=== PATIENT | male | born 1945 | race Two or more races ===

== ENCOUNTER 2019-10-16 01:56 | Inpatient (IN) | payer OTHER ==
[~2019-10-16] VITALS: Ht 162.6 cm; Wt 68.9 kg
[2019-10-16] MEDS ORDERED: SODIUM CHLORIDE 0.9% 1,000 ML IV ONE (02:52)
[2019-10-16] MEDS ORDERED: DOXYCYCLINE 100MG/250ML 250 ML IV ONE (03:00)
[2019-10-16] MEDS ORDERED: methylPREDNISolone SOD SUCC 125 MG/2 ML VL IV ONE (03:00)
[2019-10-16 03:31] LABS: Basophils # (auto) 0 10 ^3/uL (0-0.2); Basophils % (auto) 0.2 % (0.0-2.0); Eosinophils # (auto) 0 10 ^3/uL (0-0.8); Hematocrit 45.7 % (41.0-53.0); Hemoglobin 15.5 g/dL (13.5-17.5); Lymphocytes % (auto) 7.7 % (10.0-50.0); Mean Corpuscular Hemoglobin 31.8 pg (28.0-32.0); Mean Corpuscular Hgb Conc. 33.9 g/dL (32.0-36.0); Mean Corpuscular Volume 93.7 fL (80.0-100.0); Monocytes # (auto) 0.4 10 ^3/uL (0-1.3); Monocytes % (auto) 2.8 % (0.0-12.0); Neutrophils # (auto) 11.6 10 ^3/uL (1.6-8.6); Neutrophils % (auto) 89.3 % (37.0-80.0); Nucleated Red Blood Cells % 0.1 %; Platelet Count (auto) 153 10^3/uL (140-450); Red Blood Cells 4.87 10^6/uL (4.5-5.90); Red Cell Distribution Width 13.4 % (11.8-14.3)
[2019-10-16 03:35] LABS: Albumin 2.3 g/dL (3.4-5.0); Calcium 7.9 mg/dL (8.5-10.1); INR 1.07 (0.9-1.15); Magnesium 2.8 mg/dL (1.6-2.6); Partial Thromboplastin Time 30.2 sec (23.64-32.05); Potassium 3.8 mmol/L (3.5-5.1)
[2019-10-16 03:37] LABS: Lactic Acid w/Reflex 2.3 mmol/L (0.4-2.0)
[2019-10-16 03:39] LABS: Bilirubin, Total 0.8 mg/dL (0.2-1.0); Total Protein 7.5 g/dL (6.4-8.2)
[2019-10-16 11:53] LABS: Urine Bacteria NONE SEEN /hpf (None Seen); Urine Blood Negative /uL (Negative); Urine Mucus FEW (None Seen); Urine Specific Gravity 1.018 (1.001-1.035); Urine WBC 2 /hpf (0 - 3)
[2019-10-16] MEDS ORDERED: NITROGLYCERIN 0.4 MG SL TAB SL PRN (13:00)
[2019-10-16] MEDS ORDERED: levoFLOXacin 500MG 100 ML IV ONE (13:00)
[2019-10-16] MEDS ORDERED: ACETAMINOPHEN 500 MG TAB PO PRN (13:00)
[2019-10-16] MEDS ORDERED: MORPHINE SULF INJ 2 MG/ML SYRINGE 1ML IV PRN ×2 (13:00)
[2019-10-16] MEDS ORDERED: TEMAZEPAM 15 MG CAP PO PRN (13:00)
[2019-10-16] MEDS ORDERED: traMADol HCL 50 MG TAB PO PRN (13:00)
[2019-10-16] MEDS ORDERED: PROMETHAZINE HCL 25 MG/ML 1ML IV PRN (13:00)
[2019-10-16] MEDS ORDERED: DEXTROSE (50%) 50ML SYRG IV PRN (13:00)
[2019-10-16] MEDS: BUDESONIDE (INHALATION) 180 MCG IH IN SCH ×2 (13:08→22:20)
[2019-10-16] MEDS ORDERED: ZINC SULFATE 220mg CAP or TAB PO ONE (13:15)
[2019-10-16] MEDS ORDERED: DexAMETHasone SOD PHOS 10MG/1ML VIAL INJ IV ONE (13:15)
[2019-10-16] MEDS ORDERED: CHOLECALCIFEROL (VITD3) 2,000 UNIT CAP PO ONE (13:15)
[2019-10-16] MEDS: SODIUM CHLORIDE 0.9% 1,000 ML IV SCH (13:49)
[2019-10-16] MEDS: ASCORBIC ACID 1,000 MG TAB PO SCH (13:50)
[2019-10-16] MEDS: CLINDAMYCIN 600MG IV 50 ML IV SCH ×2 (13:52→22:00)
[2019-10-16] MEDS: ALBUTEROL SULF HFA 90MCG INH 200DOSE IN SCH ×2 (14:00→22:20)
[2019-10-16 14:38] VITALS: BP 106/56
[2019-10-16] MEDS: InsuLIN REG 1unit/0.01ml Soln (100units/ml) SC SCH ×2 (17:00→22:25)
[2019-10-16] MEDS: ACCU-CHEK COMFORT CURVE STRIP VI SCH ×2 (17:00→22:20)
[2019-10-16] MEDS: FAMOTIDINE 20 MG TAB PO SCH (22:00)
[2019-10-17] MEDS: SODIUM CHLORIDE 0.9% 1,000 ML IV SCH (02:15)
[2019-10-17 04:16] LABS: Basophils # (auto) 0.1 10 ^3/uL (0-0.2); Basophils % (auto) 0.5 % (0.0-2.0); Eosinophils # (auto) 0 10 ^3/uL (0-0.8); Eosinophils % (auto) 0.1 % (0.0-7.0); Hematocrit 46.8 % (41.0-53.0); Hemoglobin 15.8 g/dL (13.5-17.5); Lymphocytes # (auto) 0.7 10 ^3/uL (0.4-5.4); Lymphocytes % (auto) 5.4 % (10.0-50.0); Mean Corpuscular Hemoglobin 31.8 pg (28.0-32.0); Mean Corpuscular Hgb Conc. 33.8 g/dL (32.0-36.0); Monocytes # (auto) 0.4 10 ^3/uL (0-1.3); Monocytes % (auto) 3.5 % (0.0-12.0); Neutrophils # (auto) 11.5 10 ^3/uL (1.6-8.6); Neutrophils % (auto) 90.5 % (37.0-80.0); Nucleated Red Blood Cells % 0.1 %; Platelet Count (auto) 152 10^3/uL (140-450); Red Blood Cells 4.98 10^6/uL (4.5-5.90); Red Cell Distribution Width 13.3 % (11.8-14.3); White Blood Cell 12.6 10^3/uL (4.4-10.8)
[2019-10-17 04:35] LABS: Albumin 1.9 g/dL (3.4-5.0); Calcium 7.8 mg/dL (8.5-10.1)
[2019-10-17 04:38] LABS: BUN/Creatinine Ratio 27.9; Bilirubin, Total 0.5 mg/dL (0.2-1.0); Total Protein 6.7 g/dL (6.4-8.2)
--- NOTE | 2019-10-17 06:25 | NUR ---
RT NOTE: PT HAS HIGH FLOW NASAL CANNULA ORDERS BUT IS CURRENTLY IN A ROOM THAT IS NOT EQUIPPED FOR THAT. PT IS CURRENTLY ON 15L NRB AND 10L OXYMIZER. PT STATES THAT HE DOES NOT HAVE ANY SOB AT THIS TIME. WILL CONTINUE TO MONITOR.
[2019-10-17] MEDS: CLINDAMYCIN 600MG IV 50 ML IV SCH (06:42)
[2019-10-17] MEDS: ALBUTEROL SULF HFA 90MCG INH 200DOSE IN SCH ×3 (07:18→21:46)
[2019-10-17] MEDS: ACCU-CHEK COMFORT CURVE STRIP VI SCH ×4 (08:26→22:06)
[2019-10-17] MEDS: InsuLIN REG 1unit/0.01ml Soln (100units/ml) SC SCH ×4 (08:28→22:09)
[2019-10-17] MEDS: DexAMETHasone SOD PHOS 10MG/1ML VIAL INJ IV SCH (09:39)
[2019-10-17] MEDS: FAMOTIDINE 20 MG TAB PO SCH ×2 (09:41→22:09)
[2019-10-17] MEDS: ZINC SULFATE 220mg CAP or TAB PO SCH (09:41)
[2019-10-17] MEDS: CHOLECALCIFEROL (VITD3) 2,000 UNIT CAP PO SCH (09:41)
[2019-10-17] MEDS: ASCORBIC ACID 1,000 MG TAB PO SCH (09:41)
[2019-10-17] MEDS ORDERED: levoFLOXacin 500MG 100 ML IV SCH (10:00)
[2019-10-17] MEDS ORDERED: AZITHROMYCIN 500MG/ 250ML 250 ML IV ONE (11:30)
[2019-10-17] MEDS: BUDESONIDE (INHALATION) 180 MCG IH IN SCH ×2 (12:22→21:45)
[2019-10-17] MEDS: ENOXAPARIN SOD 80 MG/0.8ML SYRINGE SC SCH ×2 (13:37→22:07)
[2019-10-18] MEDS: VANCOMYCIN 1GM/250ML 250 ML IV SCH ×2 (02:24→13:50)
[2019-10-18] MEDS: ALBUTEROL SULF HFA 90MCG INH 200DOSE IN SCH ×3 (06:15→23:24)
--- NOTE | 2019-10-18 06:15 | NUR ---
RT NOTE: PT REFUSED TX AT THIS TIME. PT APPEARS TO BE MORE ALTERED THAN YESTERDAY. ATTEMPTING TO GET PT TO ALLOW ABG. RN BEDSIDE. WILL CONTINUE TO MONITOR.
[2019-10-18] MEDS: InsuLIN REG 1unit/0.01ml Soln (100units/ml) SC SCH ×4 (07:00→21:59)
[2019-10-18] MEDS: ACCU-CHEK COMFORT CURVE STRIP VI SCH ×4 (07:08→22:00)
[2019-10-18] MEDS: DexAMETHasone SOD PHOS 10MG/1ML VIAL INJ IV SCH (07:54)
[2019-10-18] MEDS: ZINC SULFATE 220mg CAP or TAB PO SCH (07:54)
[2019-10-18] MEDS: ASCORBIC ACID 1,000 MG TAB PO SCH (07:54)
[2019-10-18] MEDS: CHOLECALCIFEROL (VITD3) 2,000 UNIT CAP PO SCH (07:54)
[2019-10-18] MEDS: AZITHROMYCIN 500MG/ 250ML 250 ML IV SCH (07:54)
[2019-10-18] MEDS: FAMOTIDINE 20 MG TAB PO SCH ×2 (07:54→22:04)
[2019-10-18] MEDS: ENOXAPARIN SOD 80 MG/0.8ML SYRINGE SC SCH ×2 (07:55→22:04)
[2019-10-18] MEDS: ACETAMINOPHEN 500 MG TAB PO PRN (09:50)
[2019-10-18 10:02] LABS: Hemoglobin 14.8 g/dL (13.5-17.5); Mean Corpuscular Hemoglobin 31.6 pg (28.0-32.0); Mean Corpuscular Hgb Conc. 33.6 g/dL (32.0-36.0); Platelet Count (auto) 228 10^3/uL (140-450); Red Blood Cells 4.68 10^6/uL (4.5-5.90); Red Cell Distribution Width 13.5 % (11.8-14.3); White Blood Cell 10.9 10^3/uL (4.4-10.8)
[2019-10-18 10:12] LABS: Basophils % (manual) 0 (0.0-2.0); Blast Cells 0; Eosinophils % (manual) 0 (0-7); Metamyelocytes % 0; Promyelocytes % 0; Reactive Lymphocytes 0
[2019-10-18 10:14] LABS: BUN/Creatinine Ratio 19.7; Calcium 8.2 mg/dL (8.5-10.1); Magnesium 2.6 mg/dL (1.6-2.6); Potassium 4.2 mmol/L (3.5-5.1)
[2019-10-18] MEDS: BUDESONIDE (INHALATION) 180 MCG IH IN SCH ×2 (10:31→23:24)
--- NOTE | 2019-10-18 10:31 | NUR ---
RT NOTE: PT REFUSED TX AGAIN. OXYGEN TITRATED DOWN TO 12L OXYMIZER ONLY. RN AWARE. NO SIGNS OF DISTRESS. SPO2 94-96%. WILL CONTINUE TO MONITOR.
[2019-10-18 10:44] LABS: Band Neutrophils % (manual) 5; Lymphocytes % (manual) 1 (10.0-50.0); Monocytes % (manual) 7 (0-12); Myelocytes % 1
--- NOTE | 2019-10-18 14:20 | NUR ---
RT NOTE: LEAVING ER BED 4, I SAW THE RN RUSHING TO PUT ON PPE. SHE STATED THAT PT HAD TAKEN OFF OXYMIZER OFF TO USE BEDSIDE COMMODE. WHEN SEEING PT, SPO2 WAS 44. PT WAS LAYING BACK IN BED AND LETHARGIC, BUT STILL TALKING. OXYMIZER PLACED BACK ON AND NRB ALSO PUT ON AT 15L. AFTER ABOUT 3MIN, SPO2 RETURNED TO 93-95%. PT SITTING IN BED, NO SIGNS OF RESPIRATORY DISTRESS. LEFT WITH BOTH OXYMIZER AND NRB. WILL RETURN TO TITRATE AGAIN.
--- NOTE | 2019-10-18 23:25 | NUR ---
RT NOTE PT WAS SEEN BY RT FOR MDI TX. PT TOLERATES WELL VIA SPACER. PT RINSED MOUTH WITH WATER POST TX Addendum: 10/18/19 at 2326 by Fadia Laura RT Amended: Links added.
[2019-10-19] MEDS: VANCOMYCIN 1GM/250ML 250 ML IV SCH ×2 (02:00→14:00)
[2019-10-19] MEDS ORDERED: LORazepam 2MG/ML-1ML VIAL ONE (03:10)
[2019-10-19] MEDS ORDERED: LORazepam 2MG/ML-1ML VIAL IV PRN (03:15)
[2019-10-19] MEDS: InsuLIN REG 1unit/0.01ml Soln (100units/ml) SC SCH ×4 (06:52→21:45)
[2019-10-19] MEDS: ACCU-CHEK COMFORT CURVE STRIP VI SCH ×4 (06:52→21:46)
[2019-10-19] MEDS: ALBUTEROL SULF HFA 90MCG INH 200DOSE IN SCH ×3 (07:15→23:14)
[2019-10-19] MEDS: BUDESONIDE (INHALATION) 180 MCG IH IN SCH ×2 (07:15→23:14)
[2019-10-19] MEDS ORDERED: ACETAMINOPHEN 650 MG RECT SUPP PR ONE ×2 (07:15→07:45)
[2019-10-19] MEDS: ZINC SULFATE 220mg CAP or TAB PO SCH (09:12)
[2019-10-19] MEDS: AZITHROMYCIN 500MG/ 250ML 250 ML IV SCH (09:12)
[2019-10-19] MEDS: DexAMETHasone SOD PHOS 10MG/1ML VIAL INJ IV SCH (09:12)
[2019-10-19] MEDS: FAMOTIDINE 20 MG TAB PO SCH ×2 (09:13→21:45)
[2019-10-19] MEDS: ASCORBIC ACID 1,000 MG TAB PO SCH (09:13)
[2019-10-19] MEDS: CHOLECALCIFEROL (VITD3) 2,000 UNIT CAP PO SCH (09:13)
[2019-10-19] MEDS: ENOXAPARIN SOD 80 MG/0.8ML SYRINGE SC SCH ×2 (09:15→21:45)
[2019-10-19 09:31] LABS: Hematocrit 45.2 % (41.0-53.0); Hemoglobin 15.1 g/dL (13.5-17.5); Mean Corpuscular Hemoglobin 31.7 pg (28.0-32.0); Mean Corpuscular Hgb Conc. 33.3 g/dL (32.0-36.0); Mean Corpuscular Volume 95.2 fL (80.0-100.0); Platelet Count (auto) 293 10^3/uL (140-450); Red Blood Cells 4.74 10^6/uL (4.5-5.90); Red Cell Distribution Width 13.7 % (11.8-14.3); White Blood Cell 11.2 10^3/uL (4.4-10.8)
[2019-10-19 09:46] LABS: Basophils % (manual) 0 (0.0-2.0); Blast Cells 0; Eosinophils % (manual) 0 (0-7); Monocytes % (manual) 0 (0-12); Promyelocytes % 0; Reactive Lymphocytes 0
[2019-10-19 09:53] LABS: Calcium 8.3 mg/dL (8.5-10.1); Magnesium 2.6 mg/dL (1.6-2.6); Potassium 3.9 mmol/L (3.5-5.1)
[2019-10-19 09:55] LABS: BUN/Creatinine Ratio 16.7
[2019-10-19 10:00] LABS: Lactic Acid w/Reflex 2.1 mmol/L (0.4-2.0)
[2019-10-19 10:33] LABS: Band Neutrophils % (manual) 2; Lymphocytes % (manual) 8 (10.0-50.0); Metamyelocytes % 1; Myelocytes % 1
[2019-10-19] MEDS ORDERED: TOCILIZUMAB 400 MG in SODIUM CHL 0.9% 80 ML IV ONE (11:15)
[2019-10-19] MEDS ORDERED: ACETAMINOPHEN 650 mg PER 20 mL UD PO ONE (11:15)
[2019-10-19] MEDS ORDERED: diphenhdrAMINE HCL 50 MG/1 ML VL IV ONE (11:15)
[2019-10-19] MEDS ORDERED: methylPREDNISolone SOD SUCC 40 MG/ML VL IV ONE (11:15)
[2019-10-19] MEDS: diphenhdrAMINE HCL 50 MG/1 ML VL IV SCH (11:50)
[2019-10-19] MEDS: methylPREDNISolone SOD SUCC 40 MG/ML VL IV SCH (11:50)
[2019-10-19] MEDS: ACETAMINOPHEN 650 mg PER 20 mL UD PO SCH (11:50)
--- NOTE | 2019-10-19 12:10 | NUR ---
Respiratory note: PT PLACE ON 15L NON-REBREATHER DUE TO SPO2 IN LOW 80'S. PT TOLERATED CHANGE WELL. CHARTING COMPLETE FROM OUTSIDE OF ROOM DUE TO COVID-19 PRECAUTIONS/PROTOCOL. RN AT BEDSIDE. WILL CONTINUE TO MONITOR PT.
[2019-10-19] MEDS: TOCILIZUMAB 400 MG in SODIUM CHL 0.9% 80 ML IV SCH (12:21)
--- NOTE | 2019-10-19 14:00 | NUR ---
Respiratory note: RN PRONED PT. PT TOLERATING PRONING WELL. SPO2 INCREASED TO 93%. WILL CONTINUE TO MONITOR PT.
--- NOTE | 2019-10-19 15:08 | NUR ---
Nutrition Assessment Notes Please refer to link for full assessment notes. Est Energy needs: 2160-6121 kcals (25-30 kcal/kgBW) Est Protein needs: 93-116 gms/day (1.2-1.5 gm/kgBW) d/t pt with respiratory distress Will continue to monitor and reassess prn. Addendum: 10/19/19 at [address] Amended: Links added.
[2019-10-19] MEDS ORDERED: REMDESIVIR 200 MG in NS 210ml LOADING DOSE ADULT IV ONE (16:00)
[2019-10-19 17:53] VITALS: BP 121/67
[2019-10-19] MEDS: THIAMINE 100mg/ml INJ (200mg/2ml VIAL) IV SCH (21:45)
[2019-10-20] MEDS: diphenhdrAMINE HCL 50 MG/1 ML VL IV SCH (00:05)
[2019-10-20] MEDS: ASCORBIC ACID 500 MG TAB PO SCH ×5 (00:06→23:47)
[2019-10-20] MEDS: methylPREDNISolone SOD SUCC 40 MG/ML VL IV SCH (00:06)
[2019-10-20] MEDS: ACETAMINOPHEN 650 mg PER 20 mL UD PO SCH (00:06)
[2019-10-20] MEDS: TOCILIZUMAB 400 MG in SODIUM CHL 0.9% 80 ML IV SCH (00:06)
[2019-10-20] MEDS: VANCOMYCIN 1GM/250ML 250 ML IV SCH ×2 (02:13→14:14)
[2019-10-20 06:00] LABS: Basophils # (auto) 0 10 ^3/uL (0-0.2); Basophils % (auto) 0.4 % (0.0-2.0); Eosinophils # (auto) 0 10 ^3/uL (0-0.8); Eosinophils % (auto) 0.1 % (0.0-7.0); Hematocrit 44.5 % (41.0-53.0); Hemoglobin 15.1 g/dL (13.5-17.5); Lymphocytes # (auto) 0.7 10 ^3/uL (0.4-5.4); Lymphocytes % (auto) 6.2 % (10.0-50.0); Mean Corpuscular Hemoglobin 32.3 pg (28.0-32.0); Mean Corpuscular Hgb Conc. 33.8 g/dL (32.0-36.0); Mean Corpuscular Volume 95.5 fL (80.0-100.0); Monocytes # (auto) 0.2 10 ^3/uL (0-1.3); Monocytes % (auto) 1.3 % (0.0-12.0); Neutrophils # (auto) 10.6 10 ^3/uL (1.6-8.6); Nucleated Red Blood Cells % 0.1 %; Platelet Count (auto) 312 10^3/uL (140-450); Red Blood Cells 4.66 10^6/uL (4.5-5.90); Red Cell Distribution Width 13.4 % (11.8-14.3); White Blood Cell 11.5 10^3/uL (4.4-10.8)
[2019-10-20 06:18] LABS: Albumin 1.9 g/dL (3.4-5.0); Calcium 7.9 mg/dL (8.5-10.1); Potassium 3.4 mmol/L (3.5-5.1)
[2019-10-20 06:22] LABS: BUN/Creatinine Ratio 22.1; Bilirubin, Total 0.7 mg/dL (0.2-1.0); Total Protein 6.8 g/dL (6.4-8.2)
[2019-10-20] MEDS: ALBUTEROL SULF HFA 90MCG INH 200DOSE IN SCH ×3 (06:23→22:44)
[2019-10-20] MEDS: BUDESONIDE (INHALATION) 180 MCG IH IN SCH ×2 (06:23→22:44)
[2019-10-20] MEDS: ACCU-CHEK COMFORT CURVE STRIP VI SCH ×4 (06:33→22:20)
[2019-10-20] MEDS: InsuLIN REG 1unit/0.01ml Soln (100units/ml) SC SCH ×4 (06:34→22:00)
[2019-10-20] MEDS: AZITHROMYCIN 500MG/ 250ML 250 ML IV SCH (09:31)
[2019-10-20] MEDS: ZINC SULFATE 220mg CAP or TAB PO SCH (09:31)
[2019-10-20] MEDS: DexAMETHasone SOD PHOS 10MG/1ML VIAL INJ IV SCH (09:31)
[2019-10-20] MEDS: THIAMINE 100mg/ml INJ (200mg/2ml VIAL) IV SCH ×2 (09:31→22:20)
[2019-10-20] MEDS: FAMOTIDINE 20 MG TAB PO SCH ×2 (09:32→22:20)
[2019-10-20] MEDS: CHOLECALCIFEROL (VITD3) 2,000 UNIT CAP PO SCH (09:32)
[2019-10-20] MEDS: ENOXAPARIN SOD 80 MG/0.8ML SYRINGE SC SCH ×2 (09:32→22:20)
[2019-10-20] MEDS ORDERED: POTASSIUM CHL 20 Meq TABLET PO ONE (12:15)
--- NOTE | 2019-10-20 14:00 | NUR ---
Noted pt with O2 sat 83%. With RN at bedside, moved pt to lay down on right lateral side. SPO2 improved 91%. Administered MDI via spacer, pt tolerated well, no adverse reactions noted. Pt remains laying down on right side comfortably, no s/s of distress. HR 96, RR 18, SPO2 92% on 10lpm oxymizer.
[2019-10-20] MEDS: REMDESIVIR 100mg in NS 230ml DAILYx4DAYS (NO VENT) IV SCH (16:12)
[2019-10-20 20:25] VITALS: BP 124/72
--- NOTE | 2019-10-20 20:25 | NUR ---
Telemetry admit from ER JEWELL GUILLORY admitted to Telemetry unit after SBAR received. Patient oriented to ROGERS DODSON, RN primary RN, unit, room, bed, and unit policies regarding patient care and visiting hours. Patient now on continuous telemetry monitoring, tele box # 7 and telemetry reading on arrival to unit is NSR 85 Patient placed on bedside oxygen, weighed by bedscale and encouraged to call if they need something. All questions and concerns addressed, Patinet is spaninsh speaking. Spoke to patient in swedish, patient verbalized understanding.
--- NOTE | 2019-10-20 20:35 | NUR ---
oxygenation. Patient came up from ER on Oxymizer 12 L, No sob or distress noted, DRY CHAIN PULLER informed me patients saturation was 86% and not improving. Assessed patient, patient showed no signs of distress SOB or pain, increased patients oxygen to 15 L, oxygenation improved to 92%, no distress noted. Call light within reach, Will continue to monitor.
--- NOTE | 2019-10-20 22:00 | NUR ---
Pt refused insulin Patient blood sugar was 140. Patient stated it was normal and did not want insulin at this time. Call light within reach, will continue to monitor.
--- NOTE | 2019-10-20 22:44 | NUR ---
Spoke to Dr Zaragoza. Dr Zaragoza paged and asked how patient was doing. Doctor states to have patient sleep on prone or on his side to help improve with oxygenation. Spoke to patient and patient verbalized understanding. Patient is currently on his right side. Patient is currently on 15L Oxymizer Saturation is 92%. Call light within reach, will continue to monitor.
--- NOTE | 2019-10-20 23:00 | NUR ---
No home meds Spoke to patient and daughter, they both state patient does not take any home meds. Continue care
--- NOTE | 2019-10-20 23:10 | NUR ---
Spoke to patients family Spoke to patients daughter, Gloria. Gloria states patient has no previous history, never admitted to hospital, and patient takes no home medications, Patient spoke to her father on the phone. Gloria was very happy to speak with father because she says in the ER he was altered level of conscious, now he seems to be improving, Gloria spoke to her father for 10 minutes. Call light within reach, will continue to monitor.
--- NOTE | 2019-10-21 00:05 | NUR ---
Family called Updated family on patients status, all questions answered at this time, Will continue to monitor.
--- NOTE | 2019-10-21 01:00 | NUR ---
Bowel movement Patient had a bowel movement, Large in size, brown and loose. HEATING AND AIR CONDITIONING MECHANIC and I cleaned up the patient, new linens and gown given, Patient tolerated it well, No sob or distress noted, patient was able to help turn and follow instructions. Call light within reach, Will continue to monitor.
[2019-10-21] MEDS: VANCOMYCIN 1GM/250ML 250 ML IV SCH ×2 (01:49→17:37)
--- NOTE | 2019-10-21 04:27 | NUR ---
Patient rounding Patient is awake, asked me to turn on the tv to watch the news. Oxygen saturation is 85% No sob or distress noted. Patient states he feels fine. Asked him take a few deep breaths and his oxygen went back up to 90%. Will continue to monitor patient. Call light is within reach.
[2019-10-21 05:00] VITALS: BP 100/60
[2019-10-21] MEDS: ACCU-CHEK COMFORT CURVE STRIP VI SCH ×4 (06:11→22:55)
[2019-10-21] MEDS: ASCORBIC ACID 500 MG TAB PO SCH ×4 (06:33→23:13)
[2019-10-21] MEDS: InsuLIN REG 1unit/0.01ml Soln (100units/ml) SC SCH ×4 (06:33→22:00)
[2019-10-21] MEDS: ALBUTEROL SULF HFA 90MCG INH 200DOSE IN SCH ×3 (06:59→22:00)
[2019-10-21] MEDS: BUDESONIDE (INHALATION) 180 MCG IH IN SCH ×2 (06:59→22:00)
--- NOTE | 2019-10-21 07:32 | NUR ---
closing note endorsed care to day shift RN no distress or sob noted
[2019-10-21 09:00] VITALS: BP 93/48
[2019-10-21] MEDS: ZINC SULFATE 220mg CAP or TAB PO SCH (11:05)
[2019-10-21] MEDS: THIAMINE 100mg/ml INJ (200mg/2ml VIAL) IV SCH ×2 (11:05→22:55)
[2019-10-21] MEDS: FAMOTIDINE 20 MG TAB PO SCH ×2 (11:05→22:53)
[2019-10-21] MEDS: AZITHROMYCIN 500MG/ 250ML 250 ML IV SCH (11:05)
[2019-10-21] MEDS: DexAMETHasone SOD PHOS 10MG/1ML VIAL INJ IV SCH (11:05)
[2019-10-21] MEDS: ENOXAPARIN SOD 80 MG/0.8ML SYRINGE SC SCH ×2 (11:06→22:53)
[2019-10-21] MEDS: CHOLECALCIFEROL (VITD3) 2,000 UNIT CAP PO SCH (11:06)
[2019-10-21 17:00] VITALS: BP 133/77
[2019-10-21] MEDS: REMDESIVIR 100mg in NS 230ml DAILYx4DAYS (NO VENT) IV SCH (17:38)
--- NOTE | 2019-10-21 19:30 | NUR ---
Opening Shift Note Assumed care of patient, awake and alert. No S/S of distress/SOB or pain. Instructed on POC and to call for assist PRN, will continue to monitor for changes Q1hr and PRN.
[2019-10-21 22:53] VITALS: BP 121/73
[2019-10-22] MEDS: VANCOMYCIN 1GM/250ML 250 ML IV SCH ×2 (01:55→14:04)
[2019-10-22 05:14] VITALS: BP 128/66
[2019-10-22] MEDS: ASCORBIC ACID 500 MG TAB PO SCH ×4 (05:52→23:55)
[2019-10-22] MEDS: ACCU-CHEK COMFORT CURVE STRIP VI SCH (06:09)
[2019-10-22] MEDS: InsuLIN REG 1unit/0.01ml Soln (100units/ml) SC SCH (06:09)
[2019-10-22] MEDS: ALBUTEROL SULF HFA 90MCG INH 200DOSE IN SCH ×3 (06:41→19:15)
[2019-10-22] MEDS: BUDESONIDE (INHALATION) 180 MCG IH IN SCH ×2 (06:41→19:15)
--- NOTE | 2019-10-22 07:33 | NUR ---
Opening Shift Note Assumed care of patient, awake and alert. No S/S of distress. SOB with activity, denies pain. Instructed on POC and to call for assist PRN, will continue to monitor for changes Q1hr and PRN.
[2019-10-22 07:42] LABS: Basophils # (auto) 0 10 ^3/uL (0-0.2); Basophils % (auto) 0.5 % (0.0-2.0); Eosinophils # (auto) 0.1 10 ^3/uL (0-0.8); Eosinophils % (auto) 1.2 % (0.0-7.0); Hematocrit 46.9 % (41.0-53.0); Hemoglobin 15.7 g/dL (13.5-17.5); Lymphocytes % (auto) 14.9 % (10.0-50.0); Mean Corpuscular Hemoglobin 31.9 pg (28.0-32.0); Mean Corpuscular Hgb Conc. 33.4 g/dL (32.0-36.0); Mean Corpuscular Volume 95.7 fL (80.0-100.0); Monocytes # (auto) 0.1 10 ^3/uL (0-1.3); Monocytes % (auto) 2.1 % (0.0-12.0); Neutrophils # (auto) 5.3 10 ^3/uL (1.6-8.6); Neutrophils % (auto) 81.3 % (37.0-80.0); Nucleated Red Blood Cells % 0.1 %; Platelet Count (auto) 410 10^3/uL (140-450); Red Cell Distribution Width 13.5 % (11.8-14.3); White Blood Cell 6.5 10^3/uL (4.4-10.8)
[2019-10-22 08:07] LABS: Calcium 8.1 mg/dL (8.5-10.1); Magnesium 2.4 mg/dL (1.6-2.6); Potassium 3.6 mmol/L (3.5-5.1)
[2019-10-22 08:09] LABS: BUN/Creatinine Ratio 28.6
[2019-10-22 08:30] VITALS: BP 113/68
[2019-10-22] MEDS: THIAMINE 100mg/ml INJ (200mg/2ml VIAL) IV SCH ×2 (10:04→21:29)
[2019-10-22] MEDS: AZITHROMYCIN 500MG/ 250ML 250 ML IV SCH (10:05)
[2019-10-22] MEDS: DexAMETHasone SOD PHOS 10MG/1ML VIAL INJ IV SCH (10:05)
[2019-10-22] MEDS: FAMOTIDINE 20 MG TAB PO SCH ×2 (10:06→21:28)
[2019-10-22] MEDS: ZINC SULFATE 220mg CAP or TAB PO SCH (10:06)
[2019-10-22] MEDS: ENOXAPARIN SOD 80 MG/0.8ML SYRINGE SC SCH ×2 (10:06→21:28)
[2019-10-22] MEDS: CHOLECALCIFEROL (VITD3) 2,000 UNIT CAP PO SCH (10:06)
[2019-10-22 13:00] VITALS: BP 104/75
--- NOTE | 2019-10-22 14:00 | NUR ---
Nutrition Followup Notes Pt wt is 73.1 kg Unable to speak to pt d/t pt is positive for COVID. Pt is with a CCHO 60g diet, appetite is good aeb ave 81% PO intake over 4 meals. Pt with no distress per RN doc. Will continue to monitor PO status, skin status, pertinent labs and weight trends. Will f/u in 3-5 days. Est Energy needs: 3008-0098 kcals (25-30 kcal/kgBW) Est Protein needs: 93-116 gms/day (1.2-1.5 gm/kgBW) d/t pt with respiratory distress Will continue to monitor and reassess prn. LABS: Ca 8.1 L, CO2 33 H, Alb 1.9 L GI: Pt had 1 BM on 10/20 per RN doc BS: 18 mod risk. Refer to wound assessment report for full details. PES: Altered nutrition related lab values r/t current medical condition aeb hyperglycemia, severe hypoalbuminemia Comments Will continue to monitor PO status, skin status, pertinent labs and weight trends. Will f/u in 3-5 days. 1) Continue to closely monitor pt PO intake to meet at least 75% of meals 2) If albumin continues trending down, consider Prostat 1 pkt bid. 3) Continue current plan of care
--- NOTE | 2019-10-22 15:24 | NUR ---
Assessment Patient is a 74-year old male who is alert and oriented. Prior to admission patient lived home with family and functioned independently. Per patient he can care for his own ADLs. Per patient he does not have any medical equipment or oxygen at home. Per patient his PCP is Dr. Concepcion Wise. Advised patient to follow up with primary doctor. Per patient he will return home to his prior living arrangements post discharge and family will transport him home. Informed patient he has the right to participate in all discharge planning. Patient verbalized understanding. Addendum: 10/22/19 at 1527 by GO CARRINGTON Amended: Links added.
[2019-10-22 16:57] VITALS: BP 106/44
[2019-10-22] MEDS: REMDESIVIR 100mg in NS 230ml DAILYx4DAYS (NO VENT) IV SCH (17:25)
--- NOTE | 2019-10-22 19:30 | NUR ---
Opening Shift Note Assumed care of patient, awake and alert., sitting up in chair. No S/S of distress or pain. Instructed on POC and to call for assist PRN, will continue to monitor for changes Q1hr and PRN.
[2019-10-22 22:00] VITALS: BP 136/80
[2019-10-23 01:01] VITALS: BP 113/68
[2019-10-23] MEDS: VANCOMYCIN 1GM/250ML 250 ML IV SCH ×2 (02:19→13:44)
[2019-10-23 05:00] VITALS: BP 120/59
[2019-10-23] MEDS: ASCORBIC ACID 500 MG TAB PO SCH ×4 (05:47→22:53)
[2019-10-23] MEDS: ALBUTEROL SULF HFA 90MCG INH 200DOSE IN SCH ×3 (06:57→22:37)
[2019-10-23] MEDS: BUDESONIDE (INHALATION) 180 MCG IH IN SCH ×2 (06:57→22:37)
--- NOTE | 2019-10-23 06:57 | NUR ---
Respiratory note: MDI GIVEN BY RT, TOLERATED WELL. HR 76, RR 16, SPO2 89% 15L NRB, BS DIMINISHED. WILL CONTINUE TO MONITOR ORDERED. Addendum: 10/23/19 at 1104 by HAILE MAY RT PT INFORMED TO RINSE MOUTH AFTER PULMICORT DPI
--- NOTE | 2019-10-23 08:07 | NUR ---
Patient given an Incentive Spirometer and instructed on how to use. Patient verbalized understanding of use.
[2019-10-23 08:51] VITALS: BP 102/62
--- NOTE | 2019-10-23 09:30 | NUR ---
Respiratory note: SPOKE TO THAI MASSEUR ALIS ABOUT PLACING PT ON MONITOR WITH CONTINUOUS POX.
[2019-10-23] MEDS: DexAMETHasone SOD PHOS 10MG/1ML VIAL INJ IV SCH ×2 (10:00→10:07)
[2019-10-23] MEDS: AZITHROMYCIN 500MG/ 250ML 250 ML IV SCH (10:07)
[2019-10-23] MEDS: THIAMINE 100mg/ml INJ (200mg/2ml VIAL) IV SCH ×2 (10:07→22:53)
[2019-10-23] MEDS: ZINC SULFATE 220mg CAP or TAB PO SCH (10:07)
[2019-10-23] MEDS: FAMOTIDINE 20 MG TAB PO SCH ×2 (10:08→22:53)
[2019-10-23] MEDS: ENOXAPARIN SOD 80 MG/0.8ML SYRINGE SC SCH ×2 (10:08→22:53)
[2019-10-23] MEDS: CHOLECALCIFEROL (VITD3) 2,000 UNIT CAP PO SCH (10:08)
--- NOTE | 2019-10-23 10:19 | NUR ---
Per pharmacy decadron is on back order. MD to be notified.
--- NOTE | 2019-10-23 10:30 | NUR ---
No continuous pulse ox available for patient. charge nurse notified.
[2019-10-23 11:59] LABS: Potassium 3.6 mmol/L (3.5-5.1)
[2019-10-23 12:18] LABS: Albumin 2.1 g/dL (3.4-5.0); BUN/Creatinine Ratio 27.4; Bilirubin, Total 0.6 mg/dL (0.2-1.0); CRP High Sensitivity 3.01 mg/dL (< 0.3); Calcium 8.1 mg/dL (8.5-10.1); Total Protein 6.4 g/dL (6.4-8.2)
[2019-10-23 13:00] VITALS: BP 112/62
--- NOTE | 2019-10-23 13:30 | NUR ---
Patient IV fell out, catheter intact, dressing applied to site. Patient tolerated well. Nurse at bedside to attempt IV insertion.
--- NOTE | 2019-10-23 13:40 | NUR ---
New Iv to right forearm 22guage. Patient tolerated well.
--- NOTE | 2019-10-23 15:00 | NUR ---
received call that pharmacy would be preparing Remdesevir.
--- NOTE | 2019-10-23 15:50 | NUR ---
called to follow up on Remdesevir, pharmacy said they are bringing the medication up.
[2019-10-23] MEDS: REMDESIVIR 100mg in NS 230ml DAILYx4DAYS (NO VENT) IV SCH (16:04)
[2019-10-23 17:00] VITALS: BP 97/54
--- NOTE | 2019-10-23 19:10 | NUR ---
Opening Shift Note Received report from nader Bernabe RN. Assumed care of patient, awake and alert. No S/S of distress/SOB or pain. Patient is Instructed on POC and to call for assist PRN, will continue to monitor for changes Q1hr and PRN. Bed placed in lowest position, bed alarm turned on and call light within reach.
--- NOTE | 2019-10-23 20:30 | NUR ---
Patient's oxygen saturation Patient's oxygen saturation is 86% on 15L non-rebreather. Encouraged patient to do prone position and patient's oxygen saturation is went up to 91%. Will monitor
[2019-10-23 22:00] VITALS: BP 100/50
--- NOTE | 2019-10-23 23:01 | NUR ---
Respiratory note: PT WENT PRONE AT THIS TIME AND PULSE OX SAT INCREASED TO 90%
[2019-10-24] MEDS: VANCOMYCIN 1GM/250ML 250 ML IV SCH ×3 (02:06→16:47)
--- NOTE | 2019-10-24 04:10 | NUR ---
Reminded patient the importance of being on prone position. Patient verbalized and patient is saturating 90% on 15L non-rebreather. Will monitor
[2019-10-24 05:00] VITALS: BP 98/58
[2019-10-24] MEDS: ASCORBIC ACID 500 MG TAB PO SCH ×3 (05:43→17:29)
[2019-10-24 08:00] VITALS: BP 91/62
--- NOTE | 2019-10-24 09:00 | NUR ---
Instructed patient to lay prone, patient verbalized understanding.
[2019-10-24] MEDS: DexAMETHasone SOD PHOS 10MG/1ML VIAL INJ IV SCH (10:00)
[2019-10-24] MEDS: AZITHROMYCIN 500MG/ 250ML 250 ML IV SCH (10:02)
[2019-10-24] MEDS: THIAMINE 100mg/ml INJ (200mg/2ml VIAL) IV SCH ×2 (10:02→22:41)
[2019-10-24] MEDS: FAMOTIDINE 20 MG TAB PO SCH ×2 (10:03→22:41)
[2019-10-24] MEDS: CHOLECALCIFEROL (VITD3) 2,000 UNIT CAP PO SCH (10:03)
[2019-10-24] MEDS: ZINC SULFATE 220mg CAP or TAB PO SCH (10:03)
[2019-10-24] MEDS: ENOXAPARIN SOD 80 MG/0.8ML SYRINGE SC SCH ×2 (10:03→22:41)
--- NOTE | 2019-10-24 10:21 | NUR ---
informed by pharmacy that there is no decadron, it is on backorder, paged Dr Kathleen regarding an alternate medication.
[2019-10-24] MEDS: BUDESONIDE (INHALATION) 180 MCG IH IN SCH ×2 (10:22→22:41)
[2019-10-24] MEDS: ALBUTEROL SULF HFA 90MCG INH 200DOSE IN SCH ×3 (10:23→22:41)
--- NOTE | 2019-10-24 11:15 | NUR ---
Dr Kathleen called back, ok to change decadron to PO.
[2019-10-24] MEDS: DexAMETHasone 4 MG TAB PO SCH (11:52)
[2019-10-24 12:00] VITALS: BP 118/58
--- NOTE | 2019-10-24 12:49 | NUR ---
Dr Kathleen at bedside to discuss plan of care.
--- NOTE | 2019-10-24 14:11 | NUR ---
Called pharmacy regarding Vanco trough, patient has not had one does yet, Per pharmacy hold this dose and they will order stat Trough, pharmacy will call if OK to give.
--- NOTE | 2019-10-24 14:24 | NUR ---
called family and gave update on patient status.
--- NOTE | 2019-10-24 14:50 | NUR ---
lab called about Vanco trough to see if it could be added to AM labs, I let them know it is a trough so the lab has to be drawn now before the vanco dose.
--- NOTE | 2019-10-24 16:04 | NUR ---
still awaiting results for vanco trough
[2019-10-24] MEDS ORDERED: VANCOMYCIN PER PHARMACY 0 MG IV SCH (16:45)
[2019-10-24 16:54] VITALS: BP 116/57
--- NOTE | 2019-10-24 19:20 | NUR ---
Opening Shift Note Assumed care of patient, awake and alert. No S/S of distress/SOB or pain. Bed is low, locked with 2x side rails up. Call light is within reach. Instructed on POC and to call for assist PRN, will continue to monitor for changes Q1hr and PRN.
--- NOTE | 2019-10-24 22:45 | NUR ---
RT NOTE PT WAS SEEN BY RT FOR MDI TX. PT TOLERATES ALBUTEROL WELL VIA SPACER. PT RINSED MOUTH POST PULMICORT INHALER. PT IS SUPNE WITH SATS AT 88-89%. RN WILL PRONE PT POST MED-PASS. CONT ORDERED Addendum: 10/24/19 at 2246 by Fadia Laura RT Amended: Links added.
[2019-10-24 23:23] VITALS: BP 108/59
[2019-10-25] MEDS: ASCORBIC ACID 500 MG TAB PO SCH ×5 (00:05→23:22)
[2019-10-25] MEDS: VANCOMYCIN 1GM/250ML 250 ML IV SCH ×3 (02:33→23:22)
[2019-10-25 05:37] VITALS: BP 91/51
--- NOTE | 2019-10-25 07:10 | NUR ---
end of shift notes will endorse care to day shift RN , pt AOX4 , no sign and symptoms of distress or sob
[2019-10-25] MEDS: BUDESONIDE (INHALATION) 180 MCG IH IN SCH ×2 (07:12→23:30)
[2019-10-25] MEDS: ALBUTEROL SULF HFA 90MCG INH 200DOSE IN SCH ×3 (07:12→23:30)
[2019-10-25 08:00] VITALS: BP 95/58
[2019-10-25] MEDS: FAMOTIDINE 20 MG TAB PO SCH ×2 (09:32→23:21)
[2019-10-25] MEDS: ZINC SULFATE 220mg CAP or TAB PO SCH (09:33)
[2019-10-25] MEDS: DexAMETHasone 4 MG TAB PO SCH (09:33)
[2019-10-25] MEDS: CHOLECALCIFEROL (VITD3) 2,000 UNIT CAP PO SCH (09:33)
[2019-10-25] MEDS: ENOXAPARIN SOD 80 MG/0.8ML SYRINGE SC SCH ×2 (09:34→23:22)
[2019-10-25] MEDS: AZITHROMYCIN 500MG/ 250ML 250 ML IV SCH (09:34)
[2019-10-25] MEDS: THIAMINE 100mg/ml INJ (200mg/2ml VIAL) IV SCH ×2 (09:35→23:21)
[2019-10-25 12:00] VITALS: BP 100/55
--- NOTE | 2019-10-25 13:50 | NUR ---
Nutrition Followup Notes Pt wt is 73.3 kg Unable to speak to pt d/t pt is positive for COVID. Pt is with a CCHO 60g diet, pt diet has not recorded intake 10/22-10/24. Per RN pt still receiving trays, pt with a poor appetite, not eating much of trays. RN to consult with MD on oral supplements for pt d/t to poor intake. Est Energy needs: 3381-2767 kcals (25-30 kcal/kgBW) Est Protein needs: 93-116 gms/day (1.2-1.5 gm/kgBW) d/t pt with respiratory distress Will continue to monitor and reassess prn. LABS: Creat 0.67L, Ca 8.1L, GLUC 122H, Alb 2.1L GI: Pt had 3 BMs on 10/24 per RN doc BS: 18 mod risk. Refer to wound assessment report for full details. PES: Altered nutrition related lab values r/t current medical condition aeb hyperglycemia, severe hypoalbuminemia Comments Will continue to monitor PO status, skin status, pertinent labs and weight trends. Will f/u in 3-5 days. 1) Continue to closely monitor pt PO intake to meet at least 75% of meals 2) If albumin continues trending down, consider Prostat 1 pkt bid. 3) Continue current plan of care
[2019-10-25 17:00] VITALS: BP 105/58
[2019-10-25 19:24] VITALS: BP 105/58
--- NOTE | 2019-10-25 19:25 | NUR ---
Opening Shift Note Assumed care of patient, awake and alert. No S/S of distress/SOB or pain. Instructed on POC and to call for assist PRN, will continue to monitor for changes Q1hr and PRN. Bed locked in lowest position, side rails up x 2, HOB elevated at least 30 degrees and call light is within reach.
[2019-10-25 21:33] VITALS: BP 102/54
[2019-10-26] MEDS: ACETAMINOPHEN 500 MG TAB PO PRN (02:21)
[2019-10-26 04:54] VITALS: BP 103/66
[2019-10-26] MEDS: ASCORBIC ACID 500 MG TAB PO SCH ×4 (05:00→21:50)
[2019-10-26] MEDS: BUDESONIDE (INHALATION) 180 MCG IH IN SCH ×2 (06:40→22:18)
[2019-10-26] MEDS: ALBUTEROL SULF HFA 90MCG INH 200DOSE IN SCH ×3 (06:40→22:19)
--- NOTE | 2019-10-26 07:07 | NUR ---
PATIENT REFUSED TO BE PLACED PRONE. EDUCATED X 3 HOWEVER PATIENT STILL REFUSED.
--- NOTE | 2019-10-26 07:25 | NUR ---
CLOSING SHIFT NOTE ENDORSED CARE TO DAY SHIFT RN
[2019-10-26 09:00] VITALS: BP 94/50
[2019-10-26] MEDS: VANCOMYCIN 1GM/250ML 250 ML IV SCH ×2 (09:19→18:31)
[2019-10-26] MEDS: THIAMINE 100mg/ml INJ (200mg/2ml VIAL) IV SCH ×2 (09:20→21:49)
[2019-10-26] MEDS: ENOXAPARIN SOD 80 MG/0.8ML SYRINGE SC SCH ×2 (09:24→21:50)
[2019-10-26] MEDS: ZINC SULFATE 220mg CAP or TAB PO SCH (09:25)
[2019-10-26] MEDS: CHOLECALCIFEROL (VITD3) 2,000 UNIT CAP PO SCH (09:25)
[2019-10-26] MEDS: FAMOTIDINE 20 MG TAB PO SCH ×2 (09:25→21:49)
[2019-10-26] MEDS: DexAMETHasone 4 MG TAB PO SCH (09:26)
[2019-10-26] MEDS: AZITHROMYCIN 500MG/ 250ML 250 ML IV SCH (10:43)
[2019-10-26 13:00] VITALS: BP 94/56
[2019-10-26 17:00] VITALS: BP 117/74
--- NOTE | 2019-10-26 19:15 | NUR ---
Opening Shift Note Assumed care of patient, awake and alert. No S/S of distress/SOB or pain. Instructed on POC and to call for assist PRN, will continue to monitor for changes Q1hr and PRN. Bed locked in lowest position, HOB elevated at least 30 degrees, call light within reach and side rails up x 2.
[2019-10-26 23:17] VITALS: BP 102/65
[2019-10-27 05:00] VITALS: BP 102/59
[2019-10-27] MEDS: VANCOMYCIN 1GM/250ML 250 ML IV SCH (05:23)
[2019-10-27] MEDS: ALBUTEROL SULF HFA 90MCG INH 200DOSE IN SCH ×3 (07:17→22:05)
[2019-10-27] MEDS: BUDESONIDE (INHALATION) 180 MCG IH IN SCH ×2 (07:17→22:05)
--- NOTE | 2019-10-27 07:20 | NUR ---
CLOSING SHIFT NOTE ENDORSED CARE TO DAY SHIFT RN
[2019-10-27] MEDS ORDERED: Ensure HIGH Protein Chocolate 8oz Bottle PO SCH (08:00)
[2019-10-27] MEDS: Glucerna Carbsteady SHAKE Vanilla 8oz PO SCH ×3 (08:00→19:00)
--- NOTE | 2019-10-27 08:00 | NUR ---
ASSESSMENT NOTE PT IS ALERT ORIENTED X4, RESTING IN BED COMFORTABLY, O NON REBREATHER OXYGEN MASK 15, SAT ON 88 %, ABLE TO SELF REPOSITION AND VERBALIS HIS DEMANDS, PAIN 0/10, ENCOURAGE PT TO SLEEP ON HIS ABDOMEN MORE OFTEN TO INCREASE HIS OXYGEN SATURATION, VERBALIS UNDERSTANDING
[2019-10-27 08:14] LABS: Basophils # (auto) 0 10 ^3/uL (0-0.2); Basophils % (auto) 0.2 % (0.0-2.0); Eosinophils # (auto) 0 10 ^3/uL (0-0.8); Eosinophils % (auto) 0.1 % (0.0-7.0); Hemoglobin 15.8 g/dL (13.5-17.5); Lymphocytes # (auto) 0.7 10 ^3/uL (0.4-5.4); Lymphocytes % (auto) 6.5 % (10.0-50.0); Mean Corpuscular Hemoglobin 31.4 pg (28.0-32.0); Mean Corpuscular Hgb Conc. 32.9 g/dL (32.0-36.0); Mean Corpuscular Volume 95.5 fL (80.0-100.0); Monocytes # (auto) 0.4 10 ^3/uL (0-1.3); Monocytes % (auto) 3.9 % (0.0-12.0); Neutrophils # (auto) 9.8 10 ^3/uL (1.6-8.6); Neutrophils % (auto) 89.3 % (37.0-80.0); Platelet Count (auto) 248 10^3/uL (140-450); Red Blood Cells 5.03 10^6/uL (4.5-5.90); Red Cell Distribution Width 13.8 % (11.8-14.3)
[2019-10-27 08:33] LABS: BUN/Creatinine Ratio 25.9; Magnesium 2.7 mg/dL (1.6-2.6); Potassium 4.2 mmol/L (3.5-5.1)
[2019-10-27 09:00] VITALS: BP 102/59
--- NOTE | 2019-10-27 09:00 | NUR ---
INCENTIVE SPIROMETER EDUCATED PT HOW TO USE IS MACHINE, EXPLAIN TO PT WHY, DEMONSTRATED BACK, VERBALIS UNDERSTANDING
[2019-10-27] MEDS: AZITHROMYCIN 500MG/ 250ML 250 ML IV SCH (10:08)
[2019-10-27] MEDS: THIAMINE 100mg/ml INJ (200mg/2ml VIAL) IV SCH ×2 (10:08→21:55)
[2019-10-27] MEDS: DexAMETHasone 4 MG TAB PO SCH (10:08)
[2019-10-27] MEDS: ZINC SULFATE 220mg CAP or TAB PO SCH (10:08)
[2019-10-27] MEDS: FAMOTIDINE 20 MG TAB PO SCH ×2 (10:08→21:55)
[2019-10-27] MEDS: CHOLECALCIFEROL (VITD3) 2,000 UNIT CAP PO SCH (10:09)
[2019-10-27] MEDS: ENOXAPARIN SOD 80 MG/0.8ML SYRINGE SC SCH ×2 (10:09→21:55)
[2019-10-27] MEDS: ASCORBIC ACID 500 MG TAB PO SCH ×2 (10:09→21:55)
[2019-10-27 13:00] VITALS: BP 111/48
--- NOTE | 2019-10-27 13:00 | NUR ---
BM PT HAS LARGE SOFT BM, KEPT CLEAN AND DRY
--- NOTE | 2019-10-27 14:00 | NUR ---
PT IS COMPLYING IN USING IS MACHINE, 15L NRB SAT AT 94%
[2019-10-27 17:00] VITALS: BP 99/63
--- NOTE | 2019-10-27 18:30 | NUR ---
DR STERLING AT BED SIDE FOLLOWING UP ON PT WITH NEW ORDERS
--- NOTE | 2019-10-27 18:50 | NUR ---
PT CONTINUE STABLE, CONTINUE MONITORING
--- NOTE | 2019-10-27 19:30 | NUR ---
Opening Shift Note Assumed care of patient, awake and alert. No S/S of distress/SOB or pain. Instructed on POC and to call for assist PRN. Bed in lowest locked position, call light within reach, side rails up x2. Will continue to monitor for changes Q1hr and PRN.
[2019-10-27 22:00] VITALS: BP 105/63
[2019-10-28 05:00] VITALS: BP 110/62
[2019-10-28] MEDS: ALBUTEROL SULF HFA 90MCG INH 200DOSE IN SCH ×3 (07:14→22:31)
[2019-10-28] MEDS: BUDESONIDE (INHALATION) 180 MCG IH IN SCH ×2 (07:14→22:32)
[2019-10-28] MEDS: Glucerna Carbsteady SHAKE Vanilla 8oz PO SCH ×3 (08:00→18:00)
--- NOTE | 2019-10-28 08:00 | NUR ---
ASSESSMENT NOTE PT IS ALERT ORIENTED X4, RESTING IN BED COMFORTABLY, O NON REBREATHER OXYGEN MASK 15, SAT ON 96 %, ABLE TO SELF REPOSITION AND VERBALIS HIS DEMANDS, PAIN 0/10, ENCOURAGE PT TO SLEEP ON HIS ABDOMEN MORE OFTEN TO INCREASE HIS OXYGEN SATURATION, VERBALIS UNDERSTANDING
[2019-10-28 08:38] VITALS: BP 121/62
[2019-10-28] MEDS: THIAMINE 100mg/ml INJ (200mg/2ml VIAL) IV SCH ×2 (09:21→22:16)
[2019-10-28] MEDS: ZINC SULFATE 220mg CAP or TAB PO SCH (09:21)
[2019-10-28] MEDS: DexAMETHasone 4 MG TAB PO SCH (09:22)
[2019-10-28] MEDS: FAMOTIDINE 20 MG TAB PO SCH ×2 (09:22→22:16)
[2019-10-28] MEDS: ASCORBIC ACID 500 MG TAB PO SCH ×2 (09:22→22:16)
[2019-10-28] MEDS: CHOLECALCIFEROL (VITD3) 2,000 UNIT CAP PO SCH (09:22)
[2019-10-28] MEDS: ENOXAPARIN SOD 80 MG/0.8ML SYRINGE SC SCH ×2 (09:23→22:17)
[2019-10-28] MEDS: AZITHROMYCIN 250 MG TAB PO SCH (09:23)
--- NOTE | 2019-10-28 10:10 | NUR ---
DR HENRIQUEZ AT BED SIDE FOLLOWING UP ON PT, PT ON 15 L NON BREATHER, SAID TO DECREASE IT TI 13 L, ITS OKAY PT SATURATE BETWEEN 88 TO 90 % DECREASED PT TO 13 L, PT CONTINUE TO SATURATE BETWEEN 93 TO 96 %
--- NOTE | 2019-10-28 10:19 | NUR ---
PATIENT'S DAUGHTER CALLED TO FOLLOW UP ON HER FATHER, SAID THAT SHE WILL BRING A [employer] BIBLE TODAY FOR HER FATHER
[2019-10-28 13:00] VITALS: BP 117/65
--- NOTE | 2019-10-28 14:23 | NUR ---
Nutrition Followup Notes Pt wt is 68.9 kg Unable to speak to pt d/t pt is positive for COVID. Pt is with a CCHO 60g diet, pt appetite appears to have improved, pt with good po intake aeb pt with 85% po intake x2days per Rn note. MD ordered Glucerna 1 carton TID 10/26, pt refused 10/27. Est Energy needs: 6623-6755 kcals (25-30 kcal/kgBW) Est Protein needs: 93-116 gms/day (1.2-1.5 gm/kgBW) d/t pt with respiratory distress Will continue to monitor and reassess prn. LABS: Creat 0.58L, Ca 8.0L, Alb 2.1L GI: Pt had 1 BM on 10/27 per RN doc BS: 20 low risk. Refer to wound assessment report for full details. PES: Altered nutrition related lab values r/t current medical condition aeb hyperglycemia, severe hypoalbuminemia Comments Will continue to monitor PO status, skin status, pertinent labs and weight trends. Will f/u in 3-5 days. 1) Continue to closely monitor pt PO intake to meet at least 75% of meals 2) If albumin continues trending down, consider Prostat 1 pkt bid. 3) Continue current plan of care
--- NOTE | 2019-10-28 16:06 | NUR ---
PT CONTINUE TOLERATING 13 L NON REBREATHER, SAT AT 93%
[2019-10-28 16:28] VITALS: BP 102/64
--- NOTE | 2019-10-28 18:39 | NUR ---
PT IS SITTING UP EATING DINNER, NO DISTRESS NOTED, CONTINUE MONITORING, CONTINUE ON 13 L NON REBREATHER, PT SAT AT 88% DURING EATING
--- NOTE | 2019-10-28 19:14 | NUR ---
Opening Shift Note Assumed care of patient, awake, alert and oriented x4, on 13L of oxygen via nonrebreather with even and unlabored respirations, no S/S of distress/SOB or pain. Patient able to ambulate independently, bed in lowest locked position, side rails up x2, and call light within reach. Instructed on POC and to call for assist PRN, will continue to monitor for changes Q1hr and PRN.
[2019-10-28 22:00] VITALS: BP 106/60
[2019-10-29 01:20] VITALS: BP 106/60
[2019-10-29 05:00] VITALS: BP 108/62
[2019-10-29] MEDS: BUDESONIDE (INHALATION) 180 MCG IH IN SCH ×2 (07:18→23:22)
[2019-10-29] MEDS: ALBUTEROL SULF HFA 90MCG INH 200DOSE IN SCH ×3 (07:18→23:22)
[2019-10-29] MEDS: Glucerna Carbsteady SHAKE Vanilla 8oz PO SCH ×3 (08:00→18:00)
--- NOTE | 2019-10-29 08:00 | NUR ---
ASSESSMENT NOTE PT IS ALERT ORIENTED X4, RESTING IN BED COMFORTABLY, O NON REBREATHER OXYGEN MASK 13, SAT ON 92 %, ABLE TO SELF REPOSITION AND VERBALIS HIS DEMANDS, PAIN 0/10, ENCOURAGE PT TO SLEEP ON HIS ABDOMEN MORE OFTEN TO INCREASE HIS OXYGEN SATURATION, VERBALIS UNDERSTANDING
[2019-10-29 08:55] VITALS: BP 95/55
[2019-10-29] MEDS: THIAMINE 100mg/ml INJ (200mg/2ml VIAL) IV SCH ×2 (09:18→21:56)
[2019-10-29] MEDS: FAMOTIDINE 20 MG TAB PO SCH ×2 (09:18→21:56)
[2019-10-29] MEDS: ZINC SULFATE 220mg CAP or TAB PO SCH (09:18)
[2019-10-29] MEDS: DexAMETHasone 4 MG TAB PO SCH (09:18)
[2019-10-29] MEDS: ASCORBIC ACID 500 MG TAB PO SCH ×2 (09:19→21:56)
[2019-10-29] MEDS: AZITHROMYCIN 250 MG TAB PO SCH (09:19)
[2019-10-29] MEDS: ENOXAPARIN SOD 80 MG/0.8ML SYRINGE SC SCH ×2 (09:19→21:56)
[2019-10-29] MEDS: CHOLECALCIFEROL (VITD3) 2,000 UNIT CAP PO SCH (09:19)
--- NOTE | 2019-10-29 10:30 | NUR ---
PT CONTINUE COMPLYING IN USING THE INCENTIVE SPIROMETER UP TO 1500, CONTINUE MONITORING
[2019-10-29 13:38] VITALS: BP 92/55
--- NOTE | 2019-10-29 14:38 | NUR ---
Attempted to transition pt to oxymizer 15lpm, SPO2 maintaining only 89%. Placed pt back on NRB mask 15lpm, SPO2 93-95%.
--- NOTE | 2019-10-29 15:45 | NUR ---
PT ON 15 L PER RT DECREASE THE OXYGEN RATE TO 13 L NON REBREATHER MASK
--- NOTE | 2019-10-29 16:00 | NUR ---
PT ON 13 L NON REBREATHER MASK, SAT AT 95 %
--- NOTE | 2019-10-29 17:00 | NUR ---
DR STERLING IS HERE FOLLOWING UP ON PT
[2019-10-29 17:11] VITALS: BP 107/48
--- NOTE | 2019-10-29 18:26 | NUR ---
PT CONTINUE STABLE, CONTINUE MONITORING.
[2019-10-29 22:00] VITALS: BP 94/56
[2019-10-30] MEDS: ALBUTEROL SULF HFA 90MCG INH 200DOSE IN SCH ×3 (06:51→22:12)
[2019-10-30] MEDS: BUDESONIDE (INHALATION) 180 MCG IH IN SCH ×2 (06:52→22:12)
[2019-10-30] MEDS: Glucerna Carbsteady SHAKE Vanilla 8oz PO SCH ×3 (08:25→18:00)
[2019-10-30 08:41] LABS: Basophils # (auto) 0 10 ^3/uL (0-0.2); Basophils % (auto) 0.4 % (0.0-2.0); Eosinophils # (auto) 0.1 10 ^3/uL (0-0.8); Eosinophils % (auto) 0.6 % (0.0-7.0); Hematocrit 51.4 % (41.0-53.0); Hemoglobin 16.7 g/dL (13.5-17.5); Lymphocytes # (auto) 1.3 10 ^3/uL (0.4-5.4); Lymphocytes % (auto) 11.7 % (10.0-50.0); Mean Corpuscular Hemoglobin 31.3 pg (28.0-32.0); Mean Corpuscular Hgb Conc. 32.6 g/dL (32.0-36.0); Mean Corpuscular Volume 96.1 fL (80.0-100.0); Monocytes # (auto) 0.5 10 ^3/uL (0-1.3); Monocytes % (auto) 4.9 % (0.0-12.0); Neutrophils # (auto) 8.8 10 ^3/uL (1.6-8.6); Neutrophils % (auto) 82.4 % (37.0-80.0); Nucleated Red Blood Cells % 0.2 %; Platelet Count (auto) 221 10^3/uL (140-450); Red Blood Cells 5.35 10^6/uL (4.5-5.90); Red Cell Distribution Width 13.7 % (11.8-14.3); White Blood Cell 10.7 10^3/uL (4.4-10.8)
[2019-10-30 09:01] LABS: Calcium 8.5 mg/dL (8.5-10.1); Magnesium 2.6 mg/dL (1.6-2.6); Potassium 4.2 mmol/L (3.5-5.1)
[2019-10-30 09:02] LABS: BUN/Creatinine Ratio 32.7; CRP High Sensitivity 0.27 mg/dL (< 0.3)
[2019-10-30 09:08] VITALS: BP 104/62
[2019-10-30] MEDS: DexAMETHasone 4 MG TAB PO SCH (09:57)
[2019-10-30] MEDS: THIAMINE 100mg/ml INJ (200mg/2ml VIAL) IV SCH ×2 (09:57→22:47)
[2019-10-30] MEDS: ZINC SULFATE 220mg CAP or TAB PO SCH (09:57)
[2019-10-30] MEDS: ASCORBIC ACID 500 MG TAB PO SCH ×2 (09:58→22:48)
[2019-10-30] MEDS: FAMOTIDINE 20 MG TAB PO SCH ×2 (09:58→22:47)
[2019-10-30] MEDS: CHOLECALCIFEROL (VITD3) 2,000 UNIT CAP PO SCH (09:58)
[2019-10-30] MEDS: AZITHROMYCIN 250 MG TAB PO SCH (09:58)
[2019-10-30] MEDS: ENOXAPARIN SOD 80 MG/0.8ML SYRINGE SC SCH ×2 (09:58→22:48)
[2019-10-30 12:00] VITALS: BP 100/57
[2019-10-30 16:25] VITALS: BP 102/60
--- NOTE | 2019-10-30 19:20 | NUR ---
Opening Shift Note Assumed care of patient, awake and alert. No S/S of distress/SOB or pain. POC discussed and questions answered. Bed is locked in lowest position with side rails up x2 for safety, call light is within reach and patient encouraged to call for assistance PRN, will continue to monitor for changes Q1hr and PRN.
[2019-10-30 22:00] VITALS: BP 107/66
[2019-10-31 05:00] VITALS: BP 111/71
[2019-10-31] MEDS: BUDESONIDE (INHALATION) 180 MCG IH IN SCH ×2 (06:50→21:45)
[2019-10-31] MEDS: ALBUTEROL SULF HFA 90MCG INH 200DOSE IN SCH ×3 (06:50→21:45)
[2019-10-31 09:00] VITALS: BP 107/67
[2019-10-31] MEDS: FAMOTIDINE 20 MG TAB PO SCH ×2 (09:38→22:28)
[2019-10-31] MEDS: ENOXAPARIN SOD 80 MG/0.8ML SYRINGE SC SCH ×2 (09:38→22:28)
[2019-10-31] MEDS: ASCORBIC ACID 500 MG TAB PO SCH ×2 (09:39→22:28)
[2019-10-31] MEDS: CHOLECALCIFEROL (VITD3) 2,000 UNIT CAP PO SCH (09:39)
[2019-10-31] MEDS: DexAMETHasone 4 MG TAB PO SCH (09:39)
[2019-10-31] MEDS: AZITHROMYCIN 250 MG TAB PO SCH (09:39)
[2019-10-31] MEDS: ZINC SULFATE 220mg CAP or TAB PO SCH (09:39)
[2019-10-31] MEDS: Glucerna Carbsteady SHAKE Vanilla 8oz PO SCH ×3 (09:40→18:58)
[2019-10-31] MEDS: THIAMINE 100mg/ml INJ (200mg/2ml VIAL) IV SCH ×2 (09:40→22:28)
--- NOTE | 2019-10-31 10:35 | NUR ---
DR. STERLING IN TO SEE PT. PT CONSENTED FOR [facility] [employer] INFUSION. DR. HDZ APPROVED. TYPE AND SCREEN ORDERED. TIMBER POISONER NOTIFIED.
--- NOTE | 2019-10-31 12:38 | NUR ---
Nutrition Followup Notes Wt: 68.0 kg Unable to speak to pt d/t pt is positive for COVID. Pt is with a CCHO 60g diet, with adequate PO of 75% x 6 per NR doc along with Glucerna 1 carton tid Est Energy needs: 4373-4594 kcals (25-30 kcal/kgBW), Est Protein needs: 93-116 gms/day (1.2-1.5 gm/kgBW) d/t pt with respiratory distress. Will continue to monitor and reassess prn. LABS: All nutrition related labs wnl except Alb 2.1L GI: Pt had 1 BM today per RN doc BS: 20 low risk. Refer to wound assessment report for full details. PES: Altered nutrition related lab values r/t current medical condition aeb hyperglycemia, severe hypoalbuminemia Comments Will continue to monitor PO status, skin status, pertinent labs and weight trends. Will f/u in 3-5 days. 1) Continue to closely monitor pt PO intake to meet at least 75% of meals 2) If albumin continues trending down, consider Prostat 1 pkt bid. 3) Continue current plan of care
[2019-10-31 13:00] VITALS: BP 107/61
[2019-10-31 17:00] VITALS: BP 121/69
--- NOTE | 2019-10-31 17:59 | NUR ---
REINFORCED I.S. USAGE. PT RETURNED DEMONSTRATION AND VERBALIZED UNDERSTANDING OF THERAPY. PATIENT ON 15LPM ON NON-REBREATHER O2SAT: 95% PT DENIES ANY DISCOMFORT AT MOMENT. BED LOCKED AND IN LOWEST POSITION, CALL LIGHT WITHIN REACH.
[2019-10-31 19:13] VITALS: BP 121/69
--- NOTE | 2019-10-31 19:45 | NUR ---
Opening Shift Note Assumed care of patient, awake and alert. No S/S of distress, patient remains on 15L non rebreather mask. No complaints of pain at this time. POC discussed and questions answered. Bed is locked in lowest position with side rails up x2 for safety. Bed is locked in lowest position with side rails up x2 for safety. Call light is within reach and patient encouraged to call for assistance as needed. Will continue to monitor for changes Q1hr and PRN.
[2019-10-31 22:00] VITALS: BP 113/71
--- NOTE | 2019-10-31 22:30 | NUR ---
IV removal IV DC'd with clean sterile technique, catheter fully intact. Pressure dressing applied to site. Patient tolerated well.
--- NOTE | 2019-10-31 22:42 | NUR ---
IV insertion IV access obtained, via clean sterile technique by inserting 22 gauge catheter at right wrist after 2 attempts. IV secured properly. No trauma to site. Patient tolerated well.
[2019-11-01] VITALS (8 sets, daily range): BP systolic 96–122; BP diastolic 60–84
--- NOTE | 2019-11-01 01:00 | NUR ---
Convalescent plasma transfusion completed, patient tolerated well. Vitals stable, BP 122/63, HR 71, TEMP 98.3 RR 20. No complaints of pain. Will continue to monitor
[2019-11-01] MEDS: ALBUTEROL SULF HFA 90MCG INH 200DOSE IN SCH ×3 (07:30→22:48)
[2019-11-01] MEDS: BUDESONIDE (INHALATION) 180 MCG IH IN SCH ×2 (07:30→22:49)
[2019-11-01] MEDS: Glucerna Carbsteady SHAKE Vanilla 8oz PO SCH ×3 (08:32→17:37)
[2019-11-01] MEDS: ZINC SULFATE 220mg CAP or TAB PO SCH (09:42)
[2019-11-01] MEDS: ASCORBIC ACID 500 MG TAB PO SCH ×2 (09:43→22:38)
[2019-11-01] MEDS: ENOXAPARIN SOD 80 MG/0.8ML SYRINGE SC SCH ×2 (09:43→22:42)
[2019-11-01] MEDS: DexAMETHasone 4 MG TAB PO SCH (09:43)
[2019-11-01] MEDS: FAMOTIDINE 20 MG TAB PO SCH ×2 (09:43→22:38)
[2019-11-01] MEDS: CHOLECALCIFEROL (VITD3) 2,000 UNIT CAP PO SCH (09:43)
[2019-11-01] MEDS: AZITHROMYCIN 250 MG TAB PO SCH (09:43)
[2019-11-01] MEDS: THIAMINE 100mg/ml INJ (200mg/2ml VIAL) IV SCH ×2 (09:43→22:40)
--- NOTE | 2019-11-01 10:00 | NUR ---
attempted to titrate patient, patient oxygen saturation would not go above 88%. Patient at 12L Oxymizer saturation 95%.
[2019-11-02 05:05] VITALS: BP 107/63
[2019-11-02] MEDS: ALBUTEROL SULF HFA 90MCG INH 200DOSE IN SCH ×3 (07:06→22:05)
[2019-11-02] MEDS: BUDESONIDE (INHALATION) 180 MCG IH IN SCH ×2 (07:06→22:05)
[2019-11-02] MEDS: Glucerna Carbsteady SHAKE Vanilla 8oz PO SCH ×3 (09:13→18:39)
[2019-11-02 09:28] VITALS: BP 112/66
[2019-11-02] MEDS: DexAMETHasone 4 MG TAB PO SCH (10:05)
[2019-11-02] MEDS: THIAMINE 100mg/ml INJ (200mg/2ml VIAL) IV SCH ×2 (10:05→21:34)
[2019-11-02] MEDS: CHOLECALCIFEROL (VITD3) 2,000 UNIT CAP PO SCH (10:05)
[2019-11-02] MEDS: FAMOTIDINE 20 MG TAB PO SCH ×2 (10:05→21:34)
[2019-11-02] MEDS: ZINC SULFATE 220mg CAP or TAB PO SCH (10:05)
[2019-11-02] MEDS: ASCORBIC ACID 500 MG TAB PO SCH ×2 (10:05→21:34)
[2019-11-02] MEDS: AZITHROMYCIN 250 MG TAB PO SCH (10:06)
[2019-11-02] MEDS: ENOXAPARIN SOD 80 MG/0.8ML SYRINGE SC SCH ×2 (10:06→21:35)
[2019-11-02 13:05] VITALS: BP 105/59
[2019-11-02 17:11] VITALS: BP 113/74
[2019-11-02 22:00] VITALS: BP 102/68
--- NOTE | 2019-11-02 22:06 | NUR ---
Respiratory note: TITRATED FIO2 TO 7LOXYMIZER
[2019-11-03] VITALS (7 sets, daily range): BP systolic 100–111; BP diastolic 53–70
[2019-11-03] MEDS: ALBUTEROL SULF HFA 90MCG INH 200DOSE IN SCH ×3 (07:28→21:46)
[2019-11-03] MEDS: BUDESONIDE (INHALATION) 180 MCG IH IN SCH ×2 (07:28→21:47)
[2019-11-03] MEDS: Glucerna Carbsteady SHAKE Vanilla 8oz PO SCH ×3 (09:39→18:00)
[2019-11-03] MEDS: THIAMINE 100mg/ml INJ (200mg/2ml VIAL) IV SCH ×2 (09:39→21:25)
[2019-11-03] MEDS: FAMOTIDINE 20 MG TAB PO SCH ×2 (09:40→21:24)
[2019-11-03] MEDS: DexAMETHasone 4 MG TAB PO SCH (09:40)
[2019-11-03] MEDS: ZINC SULFATE 220mg CAP or TAB PO SCH (09:40)
[2019-11-03] MEDS: ASCORBIC ACID 500 MG TAB PO SCH ×2 (09:40→21:25)
[2019-11-03] MEDS: CHOLECALCIFEROL (VITD3) 2,000 UNIT CAP PO SCH (09:40)
[2019-11-03] MEDS: ENOXAPARIN SOD 80 MG/0.8ML SYRINGE SC SCH ×2 (09:41→21:25)
[2019-11-03] MEDS: AZITHROMYCIN 250 MG TAB PO SCH (09:41)
--- NOTE | 2019-11-03 14:31 | NUR ---
TITRATED PATIENT TO 7L OXYMIZER PATIENT SPO2 94%
--- NOTE | 2019-11-03 14:44 | NUR ---
Nutrition Followup Notes Wt: 68.8 kg Unable to speak to pt d/t pt is positive for COVID. Pt is with a CCHO 60g diet, with adequate PO of 75% x 6 per NR doc along with Glucerna 1 carton tid Est Energy needs: 7920-9381 kcals (25-30 kcal/kgBW), Est Protein needs: 93-116 gms/day (1.2-1.5 gm/kgBW) d/t pt with respiratory distress. Will continue to monitor and reassess prn. LABS: All nutrition related labs wnl except Alb 2.1L of 10/29 GI: Pt had 1 BM yesterday per RN doc BS: 20 low risk. Refer to wound assessment report for full details. PES: Altered nutrition related lab values r/t current medical condition aeb hyperglycemia, severe hypoalbuminemia Comments Will continue to monitor PO status, skin status, pertinent labs and weight trends. Will f/u in 3-5 days. 1) Continue to closely monitor pt PO intake to meet at least 75% of meals 2) If albumin continues trending down, consider Prostat 1 pkt bid. 3) Continue current plan of care
--- NOTE | 2019-11-03 21:50 | NUR ---
RT NOTE PT WAS SEEN BY RT FOR MDI TX. PT TOLERATES ALBUTEROL HFA VIA SPACER AND PULMICORT FLEXHALER WELL. PT RINSED MOUTH POST TX. CONT ORDERED POX 100% ON 15L OXYMIZER. TITRATED TO 3L OXYMIZER WITH SATS AT 98% Addendum: 11/03/19 at 2151 by Fadia Laura RT Amended: Links added.
[2019-11-04 05:00] VITALS: BP 122/79
[2019-11-04 07:24] LABS: Hematocrit 47.7 % (41.0-53.0); Hemoglobin 15.8 g/dL (13.5-17.5); Mean Corpuscular Hemoglobin 31.8 pg (28.0-32.0); Mean Corpuscular Hgb Conc. 33.1 g/dL (32.0-36.0); Platelet Count (auto) 168 10^3/uL (140-450); Red Blood Cells 4.97 10^6/uL (4.5-5.90); White Blood Cell 10.2 10^3/uL (4.4-10.8)
[2019-11-04 07:38] LABS: Basophils % (manual) 0 (0.0-2.0); Blast Cells 0; Eosinophils % (manual) 0 (0-7); Metamyelocytes % 0; Myelocytes % 0; Promyelocytes % 0; Reactive Lymphocytes 0
--- NOTE | 2019-11-04 07:40 | NUR ---
Opening Shift Note Assumed care of patient, awake and confused. No S/S of distress/SOB or pain. Patient on 7L OXYMIZER. Patient safety measures in place bed in lowest position, side rails up x2, call light within reach, fall alarm on, and sitter at the bedside. Instructed on POC and to call for assist PRN, will continue to monitor for changes Q1hr and PRN.
[2019-11-04] MEDS: BUDESONIDE (INHALATION) 180 MCG IH IN SCH ×2 (07:44→21:41)
[2019-11-04] MEDS: ALBUTEROL SULF HFA 90MCG INH 200DOSE IN SCH ×3 (07:44→21:40)
[2019-11-04 07:59] LABS: Band Neutrophils % (manual) 0; Lymphocytes % (manual) 9 (10.0-50.0); Monocytes % (manual) 6 (0-12)
[2019-11-04 08:05] LABS: BUN/Creatinine Ratio 24.1; Calcium 8.2 mg/dL (8.5-10.1); Magnesium 2.4 mg/dL (1.6-2.6)
[2019-11-04 09:13] VITALS: BP 123/82
[2019-11-04] MEDS: THIAMINE 100mg/ml INJ (200mg/2ml VIAL) IV SCH ×2 (09:36→21:49)
[2019-11-04] MEDS: FAMOTIDINE 20 MG TAB PO SCH ×2 (09:36→21:47)
[2019-11-04] MEDS: DexAMETHasone 4 MG TAB PO SCH (09:36)
[2019-11-04] MEDS: Glucerna Carbsteady SHAKE Vanilla 8oz PO SCH ×3 (09:36→18:00)
[2019-11-04] MEDS: ENOXAPARIN SOD 80 MG/0.8ML SYRINGE SC SCH ×2 (09:37→21:49)
[2019-11-04] MEDS: AZITHROMYCIN 250 MG TAB PO SCH (09:37)
[2019-11-04] MEDS: CHOLECALCIFEROL (VITD3) 2,000 UNIT CAP PO SCH (09:37)
[2019-11-04] MEDS: ASCORBIC ACID 500 MG TAB PO SCH ×2 (09:37→21:47)
[2019-11-04] MEDS: ZINC SULFATE 220mg CAP or TAB PO SCH (09:37)
[2019-11-04 13:00] VITALS: BP 117/67
[2019-11-04 16:45] VITALS: BP 107/59
[2019-11-04 22:00] VITALS: BP 122/68
[2019-11-05 05:00] VITALS: BP 110/63
[2019-11-05] MEDS: BUDESONIDE (INHALATION) 180 MCG IH IN SCH ×2 (07:23→22:06)
[2019-11-05] MEDS: ALBUTEROL SULF HFA 90MCG INH 200DOSE IN SCH ×3 (07:23→22:06)
[2019-11-05 09:24] VITALS: BP 115/69
--- NOTE | 2019-11-05 09:49 | NUR ---
PT TITRATED TO 4.5L OXYMIZER SPO2 95%
[2019-11-05] MEDS: CHOLECALCIFEROL (VITD3) 2,000 UNIT CAP PO SCH (10:03)
[2019-11-05] MEDS: DexAMETHasone 4 MG TAB PO SCH (10:03)
[2019-11-05] MEDS: Glucerna Carbsteady SHAKE Vanilla 8oz PO SCH ×2 (10:03→12:00)
[2019-11-05] MEDS: ZINC SULFATE 220mg CAP or TAB PO SCH (10:03)
[2019-11-05] MEDS: AZITHROMYCIN 250 MG TAB PO SCH (10:03)
[2019-11-05] MEDS: THIAMINE 100mg/ml INJ (200mg/2ml VIAL) IV SCH ×2 (10:03→21:21)
[2019-11-05] MEDS: FAMOTIDINE 20 MG TAB PO SCH ×2 (10:04→21:22)
[2019-11-05] MEDS: ASCORBIC ACID 500 MG TAB PO SCH ×2 (10:04→21:22)
[2019-11-05] MEDS: ENOXAPARIN SOD 80 MG/0.8ML SYRINGE SC SCH ×2 (10:05→21:22)
[2019-11-05 13:39] VITALS: BP 134/63
[2019-11-05 17:27] VITALS: BP 101/60
--- NOTE | 2019-11-05 19:30 | NUR ---
Opening Shift Note Assumed care of patient, awake and alert. No S/S of distress/SOB or pain. Insructed on POC and to callfor assist PRN, will continue to monitor for changes Q1hr and PRN. Fall and safety precautions in place. Call light within reach.
[2019-11-05 22:00] VITALS: BP 102/65
[2019-11-06 05:00] VITALS: BP 105/62
[2019-11-06] MEDS: BUDESONIDE (INHALATION) 180 MCG IH IN SCH ×2 (07:27→22:55)
[2019-11-06] MEDS: ALBUTEROL SULF HFA 90MCG INH 200DOSE IN SCH ×3 (07:27→22:55)
--- NOTE | 2019-11-06 07:30 | NUR ---
Opening shift note Assumed care of patient from NOC RN Vivian. Patient is AOX4 no s/s of distress noted. Bed is in lowest locked position, side rails up x2, and call light is within reach. Updated patient on plan of care and patient verbalized understanding. Will continue to monitor q1hr and PRN.
[2019-11-06] MEDS: Glucerna Carbsteady SHAKE Vanilla 8oz PO SCH ×3 (08:00→18:00)
[2019-11-06 08:58] VITALS: BP 114/65
--- NOTE | 2019-11-06 08:58 | NUR ---
Paged manager social media Placed paged for manager social media, awaiting call back.
--- NOTE | 2019-11-06 08:58 | NUR ---
Received call back Per risk management manager Alma, she will arrange from home o2 delivery and will call back.
--- NOTE | 2019-11-06 09:23 | NUR ---
Spoke with family Spoke with patients family member Tram.Tram stated she needs a wheelchair, or cane for the patient at home, she is also requesting a shower chair. Informed Tram that rn case manager hospice will be notified regarding requests. Tram verbalized understanding.
[2019-11-06] MEDS: THIAMINE 100mg/ml INJ (200mg/2ml VIAL) IV SCH (10:09)
[2019-11-06] MEDS: ZINC SULFATE 220mg CAP or TAB PO SCH (10:10)
[2019-11-06] MEDS: FAMOTIDINE 20 MG TAB PO SCH (10:10)
[2019-11-06] MEDS: DexAMETHasone 4 MG TAB PO SCH (10:10)
[2019-11-06] MEDS: ASCORBIC ACID 500 MG TAB PO SCH (10:11)
[2019-11-06] MEDS: CHOLECALCIFEROL (VITD3) 2,000 UNIT CAP PO SCH (10:12)
[2019-11-06] MEDS: AZITHROMYCIN 250 MG TAB PO SCH (10:13)
[2019-11-06] MEDS: ENOXAPARIN SOD 80 MG/0.8ML SYRINGE SC SCH (10:13)
--- NOTE | 2019-11-06 10:52 | NUR ---
Weekend personal financial advisor-I received a page from Nurse Etienne letting me know that patient is to discharge home with oxygen. I called [facility] [phone] and spoke with Belkys, she said they require that a Medicare medical necessity form be filled out prior to them ordering the home oxygen. I faxed the Medicare Medical Necessity form to nurse Etienne, she will fax it to [facility] (fax number [phone]) when it is filled out by MD. I faxed home oxygen and home health order to [facility]. Per Nurse Etienne patient is requesting cane and wheelchair and [facility] asked her to page me when MD order is in.
--- NOTE | 2019-11-06 12:19 | NUR ---
I faxed order for shower chair and cane to [facility].
--- NOTE | 2019-11-06 12:19 | NUR ---
Nutrition Followup Notes Wt: 68.9 kg Unable to speak to pt d/t pt is positive for COVID. Pt is with a CCHO 60g diet, with adequate PO of 78% x 2days per NR doc along with Glucerna 1 carton tid. Pt is awaiting DC home with home health services and oxygen. Est Energy needs: 6281-0203 kcals (25-30 kcal/kgBW), Est Protein needs: 93-116 gms/day (1.2-1.5 gm/kgBW) d/t pt with respiratory distress. Will continue to monitor and reassess prn. LABS: Creat 0.58L, alb 2.1L, Ca 8.2L GI: Pt with 2 BMs 11/05 per Rn note BS: 21 low risk. Refer to wound assessment report for full details. PES: Altered nutrition related lab values r/t current medical condition aeb hyperglycemia, severe hypoalbuminemia Comments Will continue to monitor PO status, skin status, pertinent labs and weight trends. Will f/u in 3-5 days. 1) Continue to closely monitor pt PO intake to meet at least 75% of meals 2) If albumin continues trending down, consider Prostat 1 pkt bid. 3) Continue current plan of care
--- NOTE | 2019-11-06 12:30 | NUR ---
Faxed paper work Faxed [facility] paper work to Dr. Kathleen for signature. Awaiting fax back.
[2019-11-06 13:09] VITALS: BP 102/63
--- NOTE | 2019-11-06 13:47 | NUR ---
RECEIVED CALL FROM Received call from Dr. Kathleen. Per MD patients o2 is to be assessed on room air. Will follow through.
--- NOTE | 2019-11-06 13:50 | NUR ---
O2 assessment On room air patient desaturates at 87-88%. With 4L via nasal cannula patient maintains saturation at 91-95%. Will notify .
--- NOTE | 2019-11-06 13:59 | NUR ---
Called attending MD Left message to Dr. Kathleen regarding oxygenation. Awaiting call back.
[2019-11-06 16:20] VITALS: BP 90/61
[2019-11-06 17:08] VITALS: BP 90/61
--- NOTE | 2019-11-06 19:16 | NUR ---
end of shift note endorsed care and discharge to NOC DAMIEN Ferrer . No s/s of distress noted.
[2019-11-06 19:21] VITALS: BP 90/61
--- NOTE | 2019-11-08 09:06 | NUR ---
Weekend stoner out 11/06/19-I spoke with Kierra LEMA, she said patient will be followed by [facility]. Addendum: 11/08/19 at 0913 by Alma Asif RN Per [facility], [facility] to be delivered to home, portable oxygen to come to hospital bedside.
== END 2019-11-06 19:00 | disposition home health service (06) | DRG 871 ==
LOC: ER 01:56 → TELE 01:57 → TELE-EAST 10-20 20:20
PROVIDERS: ADMIT Internal Medicine; ATTEND Internal Medicine Geriatric Medicine
PROC: XW033E5 Introduction of Remdesivir Anti-infective into Peripheral Vein, Percutaneous Approach, New Technology Group 5 (ICD-10-PCS; principal; 2019-10-19)
PROC: XW043H5 Introduction of Tocilizumab into Central Vein, Percutaneous Approach, New Technology Group 5 (ICD-10-PCS; 2019-10-19)
PROC: XW033E5 Introduction of Remdesivir Anti-infective into Peripheral Vein, Percutaneous Approach, New Technology Group 5 (ICD-10-PCS; 2019-10-20)
PROC: 30233K1 Transfusion of Nonautologous Frozen Plasma into Peripheral Vein, Percutaneous Approach (ICD-10-PCS; 2019-11-01)
DX: A41.89 Other specified sepsis (principal); U07.1 COVID-19; J12.89 Other viral pneumonia; J96.01 Acute respiratory failure with hypoxia; J98.11 Atelectasis; E11.9 Type 2 diabetes mellitus without complications; E78.5 Hyperlipidemia, unspecified; J45.909 Unspecified asthma, uncomplicated; K21.9 Gastro-esophageal reflux disease without esophagitis; I11.0 Hypertensive heart disease with heart failure; E66.9 Obesity, unspecified; F41.9 Anxiety disorder, unspecified; I50.9 Heart failure, unspecified; Z68.29 Body mass index [BMI] 29.0-29.9, adult; Z79.51 Long term (current) use of inhaled steroids
CPT/HCPCS: 36415; 36600; 71045; 80048; 80053; 80202; 81001; 82565; 82728; 82805; 82962; 83036; 83605; 83735; 83880; 84484; 85007; 85025; 85027; 85379; 85610; 85730; 86141; 86850; 86900; 86901; 87040; 87077; 87081; 93005; 94640; 96365; 96366; 96367; 96375; 99291; G0378; J1100; J1815; J1956; J3490

== ENCOUNTER 2019-11-17 09:48 | Inpatient (IN) | payer OTHER ==
[~2019-11-17] VITALS: Ht 152.4 cm; Wt 87.6 kg
[2019-11-17] MEDS ORDERED: methylPREDNISolone SOD SUCC 125 MG/2 ML VL IV ONE (10:15)
[2019-11-17] MEDS ORDERED: ACETAMINOPHEN 500 MG TAB PO ONE (11:15)
[2019-11-17 12:55] LABS: Albumin 2.6 g/dL (3.4-5.0); Anion Gap 5 (5-15); Blood Urea Nitrogen 11 mg/dL (7-18); Calcium 8.5 mg/dL (8.5-10.1); Carbon Dioxide 29 mmol/L (21-32); Chloride 103 mmol/L (98-107); Glucose 213 mg/dL (74-106); Potassium 3.6 mmol/L (3.5-5.1); Sodium 137 mmol/L (136-145)
[2019-11-17 12:58] LABS: Lactic Acid w/Reflex 3.7 mmol/L (0.4-2.0)
[2019-11-17 13:05] LABS: Alanine Aminotransferase 38 U/L (16-61); Alkaline Phosphatase 101 U/L (45-117); Aspartate Aminotransferase 19 U/L (15-37); BUN/Creatinine Ratio 13.8; Bilirubin, Total 0.5 mg/dL (0.2-1.0); GFR African American 122 mL/min; GFR Non-African American 101 mL/min; Lactate Dehydrogenase 240 U/L (87-241); Total Protein 7.2 g/dL (6.4-8.2)
[2019-11-17 13:06] LABS: Basophils # (auto) 0.1 10 ^3/uL (0-0.2); Basophils % (auto) 0.4 % (0.0-2.0); Eosinophils # (auto) 0.1 10 ^3/uL (0-0.8); Eosinophils % (auto) 0.5 % (0.0-7.0); Hematocrit 43.1 % (41.0-53.0); Hemoglobin 14.2 g/dL (13.5-17.5); Lymphocytes # (auto) 0.6 10 ^3/uL (0.4-5.4); Lymphocytes % (auto) 4.3 % (10.0-50.0); Mean Corpuscular Hemoglobin 31.5 pg (28.0-32.0); Mean Corpuscular Hgb Conc. 33.1 g/dL (32.0-36.0); Mean Corpuscular Volume 95.3 fL (80.0-100.0); Monocytes # (auto) 0.4 10 ^3/uL (0-1.3); Monocytes % (auto) 2.5 % (0.0-12.0); Neutrophils # (auto) 13.3 10 ^3/uL (1.6-8.6); Neutrophils % (auto) 92.3 % (37.0-80.0); Platelet Count (auto) 249 10^3/uL (140-450); Red Blood Cells 4.52 10^6/uL (4.5-5.90); Red Cell Distribution Width 14.9 % (11.8-14.3); White Blood Cell 14.4 10^3/uL (4.4-10.8)
[2019-11-17] MEDS ORDERED: AZITHROMYCIN 500MG/ 250ML 250 ML IV ONE (13:30)
[2019-11-17] MEDS ORDERED: NITROGLYCERIN 0.4 MG SL TAB SL PRN ×2 (14:45→15:00)
[2019-11-17] MEDS ORDERED: MORPHINE SULF INJ 2 MG/ML SYRINGE 1ML IV PRN ×3 (14:45→15:00)
[2019-11-17] MEDS ORDERED: SODIUM CHLORIDE 0.9% 1,000 ML IV SCH (14:56)
[2019-11-17] MEDS ORDERED: ACETAMINOPHEN 325 MG TAB PO PRN (15:00)
[2019-11-17] MEDS ORDERED: ONDANSETRON HCL 4 MG/2 ML VIAL IV PRN (15:00)
[2019-11-17] MEDS ORDERED: ALUM & MAG HYDROX-SIMETH LIQ(MAALOX) 30 ML PO PRN (15:00)
[2019-11-17] MEDS ORDERED: LORazepam 0.5 MG TAB PO PRN (15:00)
[2019-11-17] MEDS ORDERED: ACETAMINOPHEN 500 MG TAB PO PRN (15:00)
[2019-11-17] MEDS ORDERED: DOCUSATE SOD 100 MG CAP PO PRN (15:00)
[2019-11-17 16:19] VITALS: BP 96/50
[2019-11-17 19:35] LABS: Urine WBC None Seen /hpf (0 - 3)
[2019-11-17 19:54] LABS: Urine Bacteria NONE SEEN /hpf (None Seen); Urine Blood Negative /uL (Negative); Urine Specific Gravity 1.005 (1.001-1.035)
[2019-11-17 20:02] LABS: Alcohol, Urine < 3.0 mg/dL (0-10); Amphetamine Screen, Urine NEGATIVE (NEGATIVE); Barbiturate Scree,Urine NEGATIVE (NEGATIVE); Benzodiazephine Screen, Urine NEGATIVE (NEGATIVE); Cannabinoid Screen, Urine NEGATIVE (NEGATIVE); Cocaine Screen, Urine NEGATIVE (NEGATIVE); Opiate Scree,Urine NEGATIVE (NEGATIVE); Phencyclidine Screen, Urine NEGATIVE (NEGATIVE)
[2019-11-17] MEDS: ALBUTEROL SULF HFA 90MCG INH 200DOSE IN SCH (22:00)
[2019-11-17] MEDS: BUDESONIDE (INHALATION) 180 MCG IH IN SCH (22:00)
[2019-11-17] MEDS ORDERED: DOXYCYCLINE 100MG/250ML 250 ML IV SCH (22:00)
--- NOTE | 2019-11-17 22:00 | NUR ---
MDI AND DPI MEDS HELD DUE TO PENDING COVID RESULTS.
[2019-11-17 23:01] LABS: Cholesterol 107 mg/dL (< 200); Triglycerides 82 mg/dL (< 150)
[2019-11-17 23:05] LABS: HDL Cholesterol 28 mg/dL (40-59); LDL Cholesterol 72 mg/dL (< 100)
--- NOTE | 2019-11-18 04:40 | NUR ---
Telemetry admit from ER GUILLORYJEWELL VIVAR admitted to Telemetry unit after SBAR received. Patient oriented to MICHELE STEVEN, RN primary RN, unit, room, bed, and unit policies regarding patient care and visiting hours. Patient now on continuous telemetry monitoring, tele box #7 and telemetry reading on arrival to unit is SR-85. Patient placed on bedside oxygen 4L, weighed by bedscale and encouraged to call if they need something. All questions and concerns addressed, patient verbalized understanding.
--- NOTE | 2019-11-18 04:45 | NUR ---
Admission Patient does not know home medications, will endorsed to dayshift nurse.
[2019-11-18 04:47] VITALS: BP 97/61
[2019-11-18] MEDS ORDERED: MORPHINE SULFATE 4 MG/ML SYR/VIAL IV PRN (05:00)
[2019-11-18] MEDS ORDERED: LORazepam 2MG/ML-1ML VIAL IV PRN (05:00)
[2019-11-18] MEDS ORDERED: VANCOMYCIN PER PHARMACY 1,000 MG IV SCH (05:00)
[2019-11-18] MEDS ORDERED: ACETAMINOPHEN 325 MG TAB PO PRN (05:00)
[2019-11-18] MEDS ORDERED: LACTATED RINGER'S 1,000 ML IV ONE (05:15)
[2019-11-18] MEDS ORDERED: SODIUM CHLORIDE 0.9% 1,000 ML IV SCH (05:15)
[2019-11-18] MEDS ORDERED: DEXTROSE (50%) 50ML SYRG IV PRN (05:30)
[2019-11-18 05:45] VITALS: BP 97/61
[2019-11-18] MEDS ORDERED: PNEUMOCOCCAL VACC POLYS 25 MCG/0.5 ML VIAL IM ONE (05:45)
[2019-11-18] MEDS ORDERED: PIPERACILLIN-TAZOB 3.375GM 100 ML IV SCH (06:00)
[2019-11-18] MEDS ORDERED: FUROSEMIDE 20 MG/2 ML VIAL IV SCH (06:00)
[2019-11-18] MEDS: ALBUTEROL SULF HFA 90MCG INH 200DOSE IN SCH ×2 (06:00→14:00)
[2019-11-18] MEDS: BUDESONIDE (INHALATION) 180 MCG IH IN SCH (06:00)
[2019-11-18] MEDS ORDERED: VANCOMYCIN 1GM/250ML 250 ML IV ONE ×2 (06:15→07:30)
--- NOTE | 2019-11-18 06:20 | NUR ---
MRSA Swab MRSA swab sent to lab
[2019-11-18] MEDS ORDERED: InsuLIN REG 1unit/0.01ml Soln (100units/ml) SC SCH (07:00)
[2019-11-18] MEDS ORDERED: ACCU-CHEK COMFORT CURVE STRIP VI SCH (07:00)
--- NOTE | 2019-11-18 07:40 | NUR ---
Opening Shift Note Assumed care of patient, awake and alert, puerto rican speaking. No S/S of distress,SOB with activity, denies pain. Instructed on POC and to call for assist PRN, will continue to monitor for changes Q1hr and PRN.
[2019-11-18 08:46] VITALS: BP 94/50
[2019-11-18] MEDS: DexAMETHasone SOD PHOS 10MG/1ML VIAL INJ IV SCH (09:19)
[2019-11-18] MEDS: ASPirin 81 mg TAB PO SCH (09:20)
[2019-11-18] MEDS: ZINC SULFATE 220mg CAP or TAB PO SCH (09:20)
[2019-11-18 09:55] LABS: Basophils # (auto) 0.1 10 ^3/uL (0-0.2); Basophils % (auto) 0.5 % (0.0-2.0); Eosinophils # (auto) 0 10 ^3/uL (0-0.8); Hematocrit 42.4 % (41.0-53.0); Hemoglobin 14.1 g/dL (13.5-17.5); Lymphocytes # (auto) 1.5 10 ^3/uL (0.4-5.4); Lymphocytes % (auto) 7.4 % (10.0-50.0); Mean Corpuscular Hemoglobin 31.8 pg (28.0-32.0); Mean Corpuscular Hgb Conc. 33.2 g/dL (32.0-36.0); Mean Corpuscular Volume 95.8 fL (80.0-100.0); Monocytes # (auto) 0.3 10 ^3/uL (0-1.3); Monocytes % (auto) 1.7 % (0.0-12.0); Neutrophils # (auto) 17.9 10 ^3/uL (1.6-8.6); Neutrophils % (auto) 90.4 % (37.0-80.0); Platelet Count (auto) 250 10^3/uL (140-450); Red Blood Cells 4.43 10^6/uL (4.5-5.90); Red Cell Distribution Width 14.5 % (11.8-14.3); White Blood Cell 19.8 10^3/uL (4.4-10.8)
[2019-11-18] MEDS ORDERED: ENOXAPARIN SOD 30 MG/0.3 ML SYRINGE SC ONE (10:00)
[2019-11-18] MEDS ORDERED: FAMOTIDINE (10MG/ML) 2ML VL IV SCH (10:00)
[2019-11-18] MEDS ORDERED: CHOLECALCIFEROL (VITD3) 2,000 UNIT CAP PO SCH (10:00)
[2019-11-18] MEDS ORDERED: ASCORBIC ACID 1,000 MG TAB PO SCH (10:00)
[2019-11-18] MEDS ORDERED: ENOXAPARIN SOD 40 MG/0.4 ML SYRINGE SC SCH (10:00)
[2019-11-18 10:12] LABS: Albumin 2.6 g/dL (3.4-5.0); Anion Gap 2 (5-15); Blood Urea Nitrogen 10 mg/dL (7-18); Calcium 8.1 mg/dL (8.5-10.1); Carbon Dioxide 32 mmol/L (21-32); Chloride 103 mmol/L (98-107); Glucose 162 mg/dL (74-106); Potassium 3.2 mmol/L (3.5-5.1); Sodium 137 mmol/L (136-145)
[2019-11-18 10:15] LABS: Lactic Acid w/Reflex 2.5 mmol/L (0.4-2.0)
[2019-11-18 10:18] LABS: Alanine Aminotransferase 34 U/L (16-61); Alkaline Phosphatase 97 U/L (45-117); Aspartate Aminotransferase 16 U/L (15-37); BUN/Creatinine Ratio 12.2; Bilirubin, Total 0.5 mg/dL (0.2-1.0); Creatine Kinase IFCC 24 U/L (39-308); GFR African American 118 mL/min; GFR Non-African American 98 mL/min; Total Protein 7.5 g/dL (6.4-8.2)
[2019-11-18] MEDS ORDERED: PANTOPRAZOLE 40 MG TAB PO ONE (10:30)
[2019-11-18] MEDS ORDERED: AZITHROMYCIN 500MG/ 250ML 250 ML IV ONE (10:30)
[2019-11-18 10:32] LABS: INR 1.09 (0.9-1.15); Partial Thromboplastin Time 32.8 sec (23.0-31.2)
[2019-11-18] MEDS: PIPERACILLIN-TAZOB 3.375GM 100 ML IV SCH ×3 (12:11→23:46)
[2019-11-18] MEDS: NYSTATIN (MOUTH-THROAT) 500,000 UNITS/5 ML SUSP MT SCH ×3 (12:11→21:42)
[2019-11-18 13:08] VITALS: BP 111/57
--- NOTE | 2019-11-18 14:00 | NUR ---
MDI'S HELD AWAITING FINAL COVID TEST.
[2019-11-18] MEDS ORDERED: IOHEXOL 350 MG/ML 100ML IJ ONE (14:49)
--- NOTE | 2019-11-18 16:35 | NUR ---
RECEIVED REPORT FROM ARACELI QUEZADA WILL AWAIT PATIENT.
[2019-11-18] MEDS: ATORVASTATIN 20 MG TAB PO SCH (21:42)
[2019-11-18 22:00] VITALS: BP 104/63
[2019-11-19] MEDS: VANCOMYCIN 1GM/250ML 250 ML IV SCH ×2 (03:22→21:42)
[2019-11-19 05:00] VITALS: BP 101/57
[2019-11-19] MEDS: NYSTATIN (MOUTH-THROAT) 500,000 UNITS/5 ML SUSP MT SCH ×4 (06:00→21:42)
[2019-11-19 06:04] LABS: Basophils # (auto) 0.3 10 ^3/uL (0-0.2); Basophils % (auto) 2.4 % (0.0-2.0); Eosinophils # (auto) 0 10 ^3/uL (0-0.8); Hematocrit 37.1 % (41.0-53.0); Hemoglobin 12.5 g/dL (13.5-17.5); Lymphocytes # (auto) 1.1 10 ^3/uL (0.4-5.4); Lymphocytes % (auto) 8.2 % (10.0-50.0); Mean Corpuscular Hemoglobin 32.4 pg (28.0-32.0); Mean Corpuscular Hgb Conc. 33.8 g/dL (32.0-36.0); Mean Corpuscular Volume 95.8 fL (80.0-100.0); Monocytes # (auto) 0.6 10 ^3/uL (0-1.3); Monocytes % (auto) 4.3 % (0.0-12.0); Neutrophils # (auto) 11.1 10 ^3/uL (1.6-8.6); Neutrophils % (auto) 85.1 % (37.0-80.0); Platelet Count (auto) 238 10^3/uL (140-450); Red Blood Cells 3.87 10^6/uL (4.5-5.90); Red Cell Distribution Width 14.4 % (11.8-14.3); White Blood Cell 13.1 10^3/uL (4.4-10.8)
[2019-11-19 06:18] LABS: BUN/Creatinine Ratio 14.8; Calcium 7.8 mg/dL (8.5-10.1); Magnesium 2.2 mg/dL (1.6-2.6); Potassium 3.4 mmol/L (3.5-5.1)
[2019-11-19] MEDS: HYDROcodone-ACET 5/325MG TAB PO PRN ×2 (06:36→11:34)
[2019-11-19] MEDS: PIPERACILLIN-TAZOB 3.375GM 100 ML IV SCH ×4 (06:36→17:45)
--- NOTE | 2019-11-19 07:40 | NUR ---
Opening Shift Note Assumed care of patient, awake and alert. No S/S of distress/SOB or pain. Instructed on POC and to call for assist PRN, will continue to monitor for changes Q1hr and PRN. Bed locked in lowest position with two side rails up and call light in reach.
[2019-11-19] MEDS: DexAMETHasone SOD PHOS 10MG/1ML VIAL INJ IV SCH (07:49)
[2019-11-19 08:00] VITALS: BP 154/69
[2019-11-19 09:00] VITALS: BP 154/69
[2019-11-19] MEDS: ZINC SULFATE 220mg CAP or TAB PO SCH (09:41)
[2019-11-19] MEDS: ENOXAPARIN SOD 40 MG/0.4 ML SYRINGE SC SCH (09:41)
[2019-11-19] MEDS: CHOLECALCIFEROL (VITD3) 1,000UNIT=25mCg TAB PO SCH (09:41)
[2019-11-19] MEDS: ASCORBIC ACID 500 MG TAB PO SCH (09:41)
[2019-11-19] MEDS: ASPirin 81 mg TAB PO SCH (09:41)
[2019-11-19] MEDS: PANTOPRAZOLE 40 MG TAB PO SCH (09:41)
[2019-11-19] MEDS: AZITHROMYCIN 500MG/ 250ML 250 ML IV SCH (09:41)
[2019-11-19] MEDS ORDERED: ENOXAPARIN SOD 40 MG/0.4 ML SYRINGE SC SCH (10:00)
[2019-11-19 13:10] VITALS: BP 106/61
--- NOTE | 2019-11-19 15:54 | NUR ---
Nutrition Assessment Notes Please refer to link for full assessment notes. Est Energy needs: 9867-8275 kcals (20-23 kcal/kgBW) Est Protein needs: 66-73 gms/day (1.0-1.1 gm/kgBW) Will continue to monitor and reassess prn. Addendum: 11/19/19 at [address] Amended: Links added.
[2019-11-19 17:00] VITALS: BP 111/65
--- NOTE | 2019-11-19 19:30 | NUR ---
Opening Shift Note Assumed care of patient, awake and alert. No S/S of distress/SOB or pain. Pt receiving oxygen via nasal cannula at 3L. Urinal at bedside. Safety measures in place, bed in lowest locked position, bed rails raised x2, call light within reach. Instructed on POC and to call for assist PRN, will continue to monitor for changes Q1hr and PRN.
[2019-11-19] MEDS: ATORVASTATIN 20 MG TAB PO SCH (21:42)
[2019-11-19 22:00] VITALS: BP 123/66
[2019-11-20] MEDS: PIPERACILLIN-TAZOB 3.375GM 100 ML IV SCH ×4 (00:41→21:35)
[2019-11-20 05:00] VITALS: BP 114/65
[2019-11-20] MEDS: NYSTATIN (MOUTH-THROAT) 500,000 UNITS/5 ML SUSP MT SCH ×4 (06:13→22:59)
--- NOTE | 2019-11-20 07:40 | NUR ---
Opening Shift Note Received patient from noc shift rn, awake and alert, up in bed finishing up breakfast. No S/S of distress/SOB, denies pain at this time. Pt. on 3L oxygen via nasal cannula. Urinal at bedside. Bed in lowest and locked position, bed rails raised x2, call light within reach. Instructed on POC and to call for assist PRN, will continue to monitor for changes Q1hr and PRN.
[2019-11-20 08:00] VITALS: BP 119/71
[2019-11-20 08:57] VITALS: BP 119/71
--- NOTE | 2019-11-20 09:50 | NUR ---
per micro, patient's UA result. Ecoli -ESBL Charge made aware. Patient will be on contact Isolation per protocol.
[2019-11-20] MEDS: ASPirin 81 mg TAB PO SCH (10:01)
[2019-11-20] MEDS: PANTOPRAZOLE 40 MG TAB PO SCH (10:01)
[2019-11-20] MEDS: ENOXAPARIN SOD 40 MG/0.4 ML SYRINGE SC SCH (10:01)
[2019-11-20] MEDS: AZITHROMYCIN 500MG/ 250ML 250 ML IV SCH (11:50)
[2019-11-20] MEDS: CHOLECALCIFEROL (VITD3) 1,000UNIT=25mCg TAB PO SCH (11:51)
[2019-11-20] MEDS: ZINC SULFATE 220mg CAP or TAB PO SCH (11:51)
[2019-11-20] MEDS: DexAMETHasone SOD PHOS 10MG/1ML VIAL INJ IV SCH (11:58)
[2019-11-20] MEDS: ASCORBIC ACID 500 MG TAB PO SCH (12:10)
[2019-11-20 12:41] VITALS: BP 86/60
--- NOTE | 2019-11-20 15:00 | NUR ---
CALLED DAUGHTER TO INQUIRE IF HOME O2 WAS DELIVERED YESTERDAY OR TODAY. UNABLE TO REACH AT THIS TIME.
[2019-11-20 16:36] VITALS: BP 132/81
[2019-11-20] MEDS ORDERED: VANCOMYCIN 1GM/250ML 250 ML IV SCH (17:00)
[2019-11-20 22:00] VITALS: BP 125/73
[2019-11-20] MEDS: ATORVASTATIN 20 MG TAB PO SCH (22:59)
[2019-11-21] MEDS: PIPERACILLIN-TAZOB 3.375GM 100 ML IV SCH ×4 (04:04→22:10)
[2019-11-21 05:00] VITALS: BP 137/77
[2019-11-21 05:32] LABS: Basophils # (auto) 0.1 10 ^3/uL (0-0.2); Basophils % (auto) 1.1 % (0.0-2.0); Eosinophils # (auto) 0 10 ^3/uL (0-0.8); Eosinophils % (auto) 0.1 % (0.0-7.0); Hematocrit 42.3 % (41.0-53.0); Hemoglobin 14.4 g/dL (13.5-17.5); Lymphocytes # (auto) 1.4 10 ^3/uL (0.4-5.4); Lymphocytes % (auto) 17.4 % (10.0-50.0); Mean Corpuscular Volume 94.2 fL (80.0-100.0); Monocytes # (auto) 0.4 10 ^3/uL (0-1.3); Monocytes % (auto) 5.3 % (0.0-12.0); Neutrophils # (auto) 6.2 10 ^3/uL (1.6-8.6); Neutrophils % (auto) 76.1 % (37.0-80.0); Nucleated Red Blood Cells % 0.1 %; Platelet Count (auto) 309 10^3/uL (140-450); Red Blood Cells 4.49 10^6/uL (4.5-5.90); White Blood Cell 8.2 10^3/uL (4.4-10.8)
[2019-11-21 05:52] LABS: Albumin 2.7 g/dL (3.4-5.0); Calcium 8.5 mg/dL (8.5-10.1); Potassium 4.4 mmol/L (3.5-5.1)
[2019-11-21 05:56] LABS: BUN/Creatinine Ratio 16.9; Bilirubin, Total 0.5 mg/dL (0.2-1.0); Total Protein 7.3 g/dL (6.4-8.2)
[2019-11-21] MEDS: NYSTATIN (MOUTH-THROAT) 500,000 UNITS/5 ML SUSP MT SCH ×4 (05:57→22:11)
--- NOTE | 2019-11-21 07:36 | NUR ---
Opening Shift Note Received patient from noc shift rn, awake, alert and oriented x4. No S/S of distress/SOB, denies pain at this time. Pt. on 3L oxygen via nasal cannula. Bed in lowest and locked position, bed rails raised x2, call light within reach. Instructed on POC and to call for assist PRN, will continue to monitor for changes Q1hr and PRN.
[2019-11-21 08:00] VITALS: BP 133/79
[2019-11-21] MEDS: VANCOMYCIN 1GM/250ML 250 ML IV SCH ×2 (08:12→20:23)
[2019-11-21 08:40] VITALS: BP 133/79
[2019-11-21] MEDS: DexAMETHasone SOD PHOS 10MG/1ML VIAL INJ IV SCH (10:56)
[2019-11-21] MEDS: ENOXAPARIN SOD 40 MG/0.4 ML SYRINGE SC SCH (10:56)
[2019-11-21] MEDS: CHOLECALCIFEROL (VITD3) 1,000UNIT=25mCg TAB PO SCH (10:57)
[2019-11-21] MEDS: ASPirin 81 mg TAB PO SCH (10:58)
[2019-11-21] MEDS: ASCORBIC ACID 500 MG TAB PO SCH (10:58)
[2019-11-21] MEDS: ZINC SULFATE 220mg CAP or TAB PO SCH (10:58)
[2019-11-21] MEDS: PANTOPRAZOLE 40 MG TAB PO SCH (10:59)
[2019-11-21 13:00] VITALS: BP 119/76
[2019-11-21] MEDS: AZITHROMYCIN 500MG/ 250ML 250 ML IV SCH (13:00)
--- NOTE | 2019-11-21 13:00 | NUR ---
spoke to daughter, Tram and updated her on patient's status. According to daughter, they received home O2 on previous discharge. daughter also requesting for walker and shower chair for patient on discharge.
[2019-11-21 17:00] VITALS: BP 118/65
--- NOTE | 2019-11-21 19:45 | NUR ---
Opening Shift Note Received patient awake, alert and oriented x4. No S/S of distress/SOB, denies pain at this time. Pt on 3L oxygen via nasal cannula. Safety measures in place, bed in lowest and locked position, bed rails raised x2, call light within reach. All needs addressed at this time. Instructed on POC and to call for assist PRN, will continue to monitor for changes Q1hr and PRN.
[2019-11-21 22:00] VITALS: BP 135/74
[2019-11-21] MEDS: ATORVASTATIN 20 MG TAB PO SCH (22:11)
[2019-11-22] MEDS: PIPERACILLIN-TAZOB 3.375GM 100 ML IV SCH (04:06)
[2019-11-22 05:00] VITALS: BP 136/72
[2019-11-22] MEDS: NYSTATIN (MOUTH-THROAT) 500,000 UNITS/5 ML SUSP MT SCH ×2 (06:30→12:00)
[2019-11-22 09:00] VITALS: BP 107/53
[2019-11-22] MEDS: VANCOMYCIN 1GM/250ML 250 ML IV SCH (09:04)
[2019-11-22] MEDS: DexAMETHasone SOD PHOS 10MG/1ML VIAL INJ IV SCH (09:06)
[2019-11-22] MEDS: PANTOPRAZOLE 40 MG TAB PO SCH (09:06)
[2019-11-22] MEDS: ZINC SULFATE 220mg CAP or TAB PO SCH (09:07)
[2019-11-22] MEDS: ASPirin 81 mg TAB PO SCH (09:07)
[2019-11-22] MEDS: ASCORBIC ACID 500 MG TAB PO SCH (09:07)
[2019-11-22] MEDS: CHOLECALCIFEROL (VITD3) 1,000UNIT=25mCg TAB PO SCH (09:08)
[2019-11-22] MEDS: ENOXAPARIN SOD 40 MG/0.4 ML SYRINGE SC SCH (09:10)
[2019-11-22] MEDS ORDERED: AZITHROMYCIN 250 MG TAB PO SCH (10:00)
[2019-11-22] MEDS ORDERED: ERTAPENEM SOD INJ 1 GM in SODIUM CHL 0.9% 50 ML IV SCH (10:00)
[2019-11-22 13:00] VITALS: BP 108/58
--- NOTE | 2019-11-22 15:44 | NUR ---
assessment Patient is a 74 year old male who is alert and oriented. Prior to admission patient lived home with family and functioned independently. Per patient he can care for his own ADLs. Patient has oxygen at home. Per patient his PCP is Dr. Ramos. Per patient he will return home to his prior living arrangements post discharge and family will transport him home. Patient will need a resumption order for home health on discharge. I informed patient he has a right to participate in any and all discharge planning. Patient does not have a POA and advanced directive. I have offered patient information on POA and advanced directives. I informed the patient the advantages and benefits of having an Advanced Directive. Patient verbalized understanding and agreed to discharge plan. Addendum: 11/22/19 at 1550 by Ina CARRINGTON Amended: Links added.
--- NOTE | 2019-11-22 17:34 | NUR ---
DISCHARGE INSTRUCTIONS GIVEN TO PT. ALL APPROPRIATE PAPERWORK SIGNED. IV AND TELE BOX REMOVED. PT DISCHARGED HOME WITH FAMILY. 02 CONCENTRATOR BROUGHT BY FAMILY FOR TRANSPORT. PT ON 3 LITERS 02 VIA N/C. PT DISCHARGED HOME.
== END 2019-11-22 17:20 | disposition home or self-care (01) | DRG 193 ==
LOC: ER 09:48 → TELE 09:49 → TELE-WESTW 11-18 04:16 → TELE-EAST 11-18 04:20 → TELE-WESTW 11-18 17:08
PROVIDERS: ADMIT Hospitalist; ATTEND Internal Medicine Geriatric Medicine
DX: J18.9 Pneumonia, unspecified organism (principal); J96.01 Acute respiratory failure with hypoxia; E43 Unspecified severe protein-calorie malnutrition; N39.0 Urinary tract infection, site not specified; J44.0 Chronic obstructive pulmonary disease with (acute) lower respiratory infection; J98.11 Atelectasis; B37.0 Candidal stomatitis; F41.9 Anxiety disorder, unspecified; F32.9 Major depressive disorder, single episode, unspecified; E78.5 Hyperlipidemia, unspecified; I50.9 Heart failure, unspecified; I11.0 Hypertensive heart disease with heart failure; E11.9 Type 2 diabetes mellitus without complications; Z87.01 Personal history of pneumonia (recurrent); Z86.19 Personal history of other infectious and parasitic diseases; K21.9 Gastro-esophageal reflux disease without esophagitis; Z20.828 Contact with and (suspected) exposure to other viral communicable diseases; Z68.37 Body mass index [BMI] 37.0-37.9, adult
CPT/HCPCS: 36415; 71045; 71275; 80048; 80053; 80061; 80202; 80307; 81001; 82550; 82565; 82728; 82962; 83036; 83605; 83615; 83735; 83880; 84443; 84484; 85025; 85379; 85610; 85730; 86141; 86850; 86900; 86901; 87040; 87081; 87086; 87088; 87186; 87426; 93005; 93306; 99291; G0378; J1100; J1335; J2543; J3490